=== PATIENT | female | born 1945 | race Caucasian/White ===

== ENCOUNTER → 2016-12-15 | Outpatient (CLI) | payer MEDICARE, BC ==
[2016-12-15 09:42] LABS: CHOLESTEROL 206.84 mg/dL (0-200); Direct HDL 69 mg/dL (>40); TRIGLYCERIDES 108 mg/dL (<150)
[2016-12-15 09:53] LABS: DIRECT LDL 115 mg/dL (<100)
== END ==
LOC: OD 08:14
PROVIDERS: ATTEND Internal Medicine
DX: E11.9 Type 2 diabetes mellitus without complications (principal); E78.5 Hyperlipidemia, unspecified
CPT/HCPCS: 36415; 80061; 83036

== ENCOUNTER → 2017-06-01 | Outpatient (CLI) | payer MEDICARE, OTHER ==
[2017-06-01 09:25] LABS: ABSOLUTE BASOPHILS # (AUTO) 0.1 10^3/uL (0.0-0.2); ABSOLUTE EOSINOPHILS # (AUTO) 0.2 10^3/uL (0.0-0.6); ABSOLUTE LYMPHOCYTES (AUTO) 2.3 10^3/uL (0.5-4.7); ABSOLUTE MONOCYTES (AUTO) 0.6 10^3/uL (0.1-1.4); ABSOLUTE NEUT (AUTO) 2.5 10^3/uL (1.7-8.2); BASOPHILS % (AUTO) 1.1 % (0-2); EOSINOPHILS % (AUTO) 3.2 % (0-6); HEMATOCRIT 37.5 % (36.0-47.0); HEMOGLOBIN 12.8 g/dL (12.0-15.5); HGB HCT DIFFERENCE 0.9; LYMPHOCYTES % (AUTO) 41.3 % (13-45); MEAN CORPUSCULAR HEMOGLOBIN 31.2 pg (27.0-33.4); MEAN CORPUSCULAR HGB CONC 34.2 g/dL (32.0-36.0); MEAN CORPUSCULAR VOLUME 91 fl (80-97); MONOCYTES % (AUTO) 10.7 % (3-13); RED BLOOD COUNT 4.12 10^6/uL (3.72-5.28); RED CELL DISTRIBUTION WIDTH 14.6 % (11.5-14.0); SEGMENTED NEUTROPHILS % (AUTO) 43.7 % (42-78); WHITE BLOOD COUNT 5.6 10^3/uL (4.0-10.5)
[2017-06-01 09:38] LABS: ALANINE AMINOTRANSFERASE 31 U/L (9-52); ALBUMIN 4.1 g/dL (3.5-5.0); ALKALINE PHOSPHATASE 59 U/L (38-126); ANION GAP 9 (5-19); ASPARTATE AMINO TRANSFERASE 22 U/L (14-36); BILIRUBIN,DIRECT 0.2 mg/dL (0.0-0.4); BILIRUBIN,TOTAL 0.6 mg/dL (0.2-1.3); BLOOD UREA NITROGEN 16 mg/dL (7-20); CARBON DIOXIDE 29 mmol/L (22-30); CHLORIDE 101 mmol/L (98-107); CHOLESTEROL 204.03 mg/dL (0-200); CREATININE RESULT 0.69 mg/dL (0.52-1.25); Direct HDL 69 mg/dL (>40); GLUCOSE 122 mg/dL (75-110); SODIUM 139.4 mmol/L (137-145); TRIGLYCERIDES 96 mg/dL (<150)
[2017-06-01 09:49] LABS: DIRECT LDL 115 mg/dL (<100)
[2017-06-02 11:39] LABS: CREATININE URINE 69.3 mg/dL (Not Estab.); MICROALBUMIN URINE 19.8 ug/mL (Not Estab.)
== END ==
LOC: OD 08:03
PROVIDERS: ATTEND Family Medicine Geriatric Medicine
DX: I10 Essential (primary) hypertension (principal); E11.9 Type 2 diabetes mellitus without complications; E78.5 Hyperlipidemia, unspecified; G62.9 Polyneuropathy, unspecified; Z79.899 Other long term (current) drug therapy
CPT/HCPCS: 36415; 80053; 80061; 82043; 82570; 83036; 84443; 85025

== ENCOUNTER → 2017-10-16 | Outpatient (CLI) | payer MEDICARE, OTHER ==
--- NOTE | 2017-10-16 14:22 | WOMENS IMAGING REPORT ---
EXAM DESCRIPTION: BILAT SCREENING MAMMO W/CAD COMPLETED DATE/TIME: 10/16/2017 9:54 am REASON FOR STUDY: SCREENING MAMMO Z12.31 ENCNTR SCREEN MAMMOGRAM FOR MALIGNANT NEOPLASM OF CHAVEZ COMPARISON: 2013, 2015 TECHNIQUE: Standard craniocaudal and mediolateral oblique views of each breast recorded using digita l acquisition. LIMITATIONS: None. FINDINGS: No masses, calcifications or architectural distortion. No areas of suspicion. Read with the assistance of CAD. .[facility] - R2 Cenova Version 1.3 .[facility] Imaging - R2 Cenova Version 1.3 .[facility] Imaging - R2 Cenova Version 2.4 .[facility] - R2 Cenova Version 2.4 .[facility] - R2 Sole Splitter Version 9.2 IMPRESSION: NORMAL MAMMOGRAM. BIRADS 1. BREAST DENSITY: b. There are scattered areas of fibroglandular density. BIRAD: 1 NEGATIVE RECOMMENDATION: ROUTINE SCREENING COMMENT: The patient has been notified of the results by letter per MQSA requirements. Additional no tification policies are in place for contacting patient with suspicious or incomplete findings. Quality ID #[id number]: The [employer] [place] [employer] recommends an annual screening mammogram for women aged 40 years or over. This facility utilizes a reminder system to ensure that all patients receive reminder letters, and/or direct phone calls for appointments. This includes reminders for routine scr eening mammograms, diagnostic mammograms, or other Breast Imaging Interventions when appropriate. Th is patient will be placed in the appropriate reminder system. The [place] [employer] (ACR) has developed recommendations for screening MRI of the breast s in certain patient populations, to be used in conjunction with mammography. Breast MRI surveillanc e may be appropriate for women with more than 20% lifetime risk of developing breast cancer as deter mined by genetic testing, significant family history of the disease, or history of mantle radiation f or Hodgkins Disease. ACR Practice Guidelines 2008. TECHNICAL DOCUMENTATION: FINDING NUMBER: (1) ASSESSMENT: (1) JOB ID: [id number] [employer]- All Rights Reserved
== END ==
LOC: WI 09:35
PROVIDERS: ATTEND Family Medicine Geriatric Medicine
DX: Z12.31 Encounter for screening mammogram for malignant neoplasm of breast (principal)
CPT/HCPCS: 77067; G0202

== ENCOUNTER → 2017-12-03 | Outpatient (CLI) | payer MEDICARE, OTHER ==
[2017-12-03 10:03] LABS: MAGNESIUM 1.5 mg/dL (1.6-2.3)
[2017-12-04 12:38] LABS: CREATININE URINE 62.2 mg/dL (Not Estab.); MICROALBUMIN URINE 18.8 ug/mL (Not Estab.)
== END ==
LOC: OD 08:21
PROVIDERS: ATTEND Family Medicine Geriatric Medicine
DX: E83.42 Hypomagnesemia (principal); E78.5 Hyperlipidemia, unspecified; I10 Essential (primary) hypertension; E11.40 Type 2 diabetes mellitus with diabetic neuropathy, unspecified; G57.51 Tarsal tunnel syndrome, right lower limb; R79.89 Other specified abnormal findings of blood chemistry; Z29.9 Encounter for prophylactic measures, unspecified; Z79.899 Other long term (current) drug therapy
CPT/HCPCS: 36415; 82043; 82570; 83036; 83735; 84450; 84460

== ENCOUNTER → 2018-01-05 | Outpatient (CLI) | payer MEDICARE, OTHER | LOC: OD 12:57 | PROVIDERS: ATTEND Family Medicine Geriatric Medicine | DX: E83.42 Hypomagnesemia (principal); Z79.899 Other long term (current) drug therapy | CPT/HCPCS: 36415; 83735 ==

== ENCOUNTER → 2018-04-05 | Outpatient (CLI) | payer MEDICARE, OTHER ==
--- NOTE | 2018-04-05 16:07 | RADIOLOGY REPORT (SQ) ---
EXAM DESCRIPTION: KNEE RIGHT 2 VIEWS COMPLETED DATE/TIME: 04/05/2018 3:50 pm REASON FOR STUDY: COUGH,RT KNEE JOINT PAIN; LUMBAR DEG. DISC DISEASE R05 COUGH M25.561 PAIN IN RIG HT KNEE M51.36 OTHER INTERVERTEBRAL DISC DEGENERATION, LUMBAR REGION COMPARISON: None. NUMBER OF VIEWS: Two views. TECHNIQUE: AP and lateral radiographic images acquired of the right knee. LIMITATIONS: None. FINDINGS: MINERALIZATION: Normal. BONES: No acute fracture or dislocation. JOINT: No joint effusion. There is narrowing of the patellofemoral joint. Marginal osteophytes are seen in the medial and lateral joint spaces to a mild degree. Meniscal calcifications are present. SOFT TISSUES: No soft tissue swelling. No radio-opaque foreign body. OTHER: No other significant finding. IMPRESSION: Mild degenerative joint disease with no acute abnormality. TECHNICAL DOCUMENTATION: JOB ID: [id number] [employer]- All Rights Reserved Reading location - IP/workstation name: [email or web address]
--- NOTE | 2018-04-05 16:11 | RADIOLOGY REPORT (SQ) ---
EXAM DESCRIPTION: LUMBAR SPINE W/FLEX/EXT COMPLETED DATE/TIME: 04/05/2018 3:51 pm REASON FOR STUDY: COUGH,RT KNEE JOINT PAIN; LUMBAR DEG. DISC DISEASE R05 COUGH M25.561 PAIN IN RIG HT KNEE M51.36 OTHER INTERVERTEBRAL DISC DEGENERATION, LUMBAR REGION COMPARISON: None. NUMBER OF VIEWS: 7 views. TECHNIQUE: AP oblique and coned-down lateral views were obtained. Lateral views were obtained in ne utral, flexion, and extension. LIMITATIONS: None. FINDINGS: MINERALIZATION: Normal. SEGMENTATION: Normal. No transitional anatomy. ALIGNMENT: Mild scoliosis. Grade 1 anterolisthesis of L2 on L3. FLEXION/EXTENSION: No instability. VERTEBRAE: Maintained height. No fracture or worrisome bone lesion. DISCS: All the lumbar disc spaces are narrowed. Marginal osteophytes are present at multiple levels. POSTERIOR ELEMENTS: Hypertrophic facet changes are present in the mid and lower lumbar spine. HARDWARE: None in the spine. OTHER: No other significant finding. IMPRESSION: Mild scoliosis. Anterolisthesis of L2 on L3. Multilevel degenerative disc disease, spo ndylosis, and facet arthropathy. No instability on flexion/ extension. TECHNICAL DOCUMENTATION: JOB ID: [id number] [employer]- All Rights Reserved Reading location - IP/workstation name: [email or web address]
--- NOTE | 2018-04-05 16:13 | RADIOLOGY REPORT (SQ) ---
EXAM DESCRIPTION: CHEST PA/LATERAL COMPLETED DATE/TIME: 04/05/2018 3:51 pm REASON FOR STUDY: COUGH,RT KNEE JOINT PAIN; LUMBAR DEG. DISC DISEASE COMPARISON: 04/02/2016 EXAM PARAMETERS: NUMBER OF VIEWS: two views TECHNIQUE: Digital Frontal and Lateral radiographic views of the chest acquired. RADIATION DOSE: NA LIMITATIONS: none FINDINGS: LUNGS AND PLEURA: No opacities, masses or pneumothorax. No pleural effusion. MEDIASTINUM AND HILAR STRUCTURES: No masses or contour abnormalities. HEART AND VASCULAR STRUCTURES: Heart normal size. No evidence for failure. BONES: No acute findings. HARDWARE: None in the chest. OTHER: No other significant finding. IMPRESSION: NO SIGNIFICANT RADIOGRAPHIC FINDING IN THE CHEST. TECHNICAL DOCUMENTATION: JOB ID: [id number] [employer]- All Rights Reserved Reading location - IP/workstation name: [email or web address]
== END ==
LOC: OD 15:04
PROVIDERS: ATTEND Pain Medicine Pain Medicine
DX: M25.561 Pain in right knee (principal); M51.36 Other intervertebral disc degeneration, lumbar region; R05 Cough; M17.11 Unilateral primary osteoarthritis, right knee
CPT/HCPCS: 71046; 72114

== ENCOUNTER → 2018-06-15 | Outpatient (CLI) | payer MEDICARE, OTHER ==
[2018-06-15 10:27] LABS: ALANINE AMINOTRANSFERASE 39 U/L (9-52); ANION GAP 12 (5-19); BLOOD UREA NITROGEN 10 mg/dL (7-20); CALCIUM 9.7 mg/dL (8.4-10.2); CARBON DIOXIDE 28 mmol/L (22-30); CHLORIDE 94 mmol/L (98-107); CHOLESTEROL 105.86 mg/dL (0-200); GLUCOSE 120 mg/dL (75-110); POTASSIUM 5.1 mmol/L (3.6-5.0); SODIUM 133.7 mmol/L (137-145); TRIGLYCERIDES 76 mg/dL (<150)
[2018-06-15 11:19] LABS: DIRECT LDL < 30 mg/dL (<100)
[2018-06-16 13:38] LABS: CREATININE URINE 22.6 mg/dL (Not Estab.); MICROALBUMIN URINE 17.9 ug/mL (Not Estab.)
== END ==
LOC: OD 08:30
PROVIDERS: ATTEND Family Medicine Geriatric Medicine
DX: E11.40 Type 2 diabetes mellitus with diabetic neuropathy, unspecified (principal); I10 Essential (primary) hypertension; E78.5 Hyperlipidemia, unspecified; E53.8 Deficiency of other specified B group vitamins
CPT/HCPCS: 36415; 80048; 80061; 82043; 82570; 82607; 83036; 84460

== ENCOUNTER 2018-07-01 07:45 | Emergency (ER) | payer MEDICARE, OTHER ==
--- NOTE | 2018-07-01 08:23 | RADIOLOGY REPORT (SQ) ---
EXAM DESCRIPTION: SHOULDER RIGHT 2 OR MORE VIEWS COMPLETED DATE/TIME: 07/01/2018 7:58 am REASON FOR STUDY: bed 15 s/p fall with tenderness COMPARISON: None. NUMBER OF VIEWS: Two views TECHNIQUE: Internal rotation and Y view images acquired of the right shoulder. LIMITATIONS: None. FINDINGS: MINERALIZATION: Bony structures are osteopenic BONES: Comminuted fracture is identified at the level of the greater tuberosity. No other evidence f or fracture is seen JOINTS: Degenerative changes are identified at the level of the AC joint VISUALIZED LUNGS AND RIBS: No pneumothorax. No rib fracture. SOFT TISSUES: No radiopaque foreign body. OTHER: No other significant finding. IMPRESSION: Fracture of the proximal humerus as noted above. TECHNICAL DOCUMENTATION: JOB ID: [id number] [employer]- All Rights Reserved Reading location - IP/workstation name: [email or web address]
[2018-07-01] MEDS ORDERED: ACETAMINOPHEN 325 MG TABLET PO ONE ×2 (08:24)
--- NOTE | 2018-07-01 08:53 | ER Document Report ---
ED General - General Chief Complaint: Fall Stated Complaint: FALL/ARM INJURY Time Seen by Provider: 07/01/18 08:13 TRAVEL OUTSIDE OF THE [place] IN LAST 30 DAYS: No - HPI Notes: Patient is a 72-year-old female with a history of hypertension, diabetes, chronic low back pain who presents to the ED complaining of right shoulder pain status post fall prior to arrival. Patient states that she was using her Rollator to get to the bathroom because she had to urinate when she did not make it in time started urinating on the floor and slipped on the urine causing her to fall. Patient states that she fell forward and landed primarily on her shoulder on the wood floor, but does believe she hit her head off the floor as well. Patient states that she has not had any loss of consciousness, nausea/ vomiting. She takes a baby aspirin daily, but no other blood thinners. Denies any headache, fever, neck pain, changes in vision/speech/mentation/hearing, URI , sore throat, chest pain, palpitations, syncope, cough, shortness of breath, wheeze, dyspnea, abdominal pain, nausea/vomiting/diarrhea, urinary retention, dysuria, hematuria, loss of control of bowel or bladder, numbness/tingling, saddle anesthesia, muscle paralysis, or rash. - Related Data Allergies/Adverse Reactions: cephalexin monohydrate [From Keflex] Allergy (Severe, Verified 05/29/16 08:47) C-Diff clarithromycin [From Biaxin] Allergy (Severe, Verified 05/29/16 08:47) Abdominal pain cyclobenzaprine HCl [From Flexeril] Allergy (Severe, Verified 05/29/16 08:47) Legs jerk meperidine HCl [From Demerol] Allergy (Severe, Verified 05/29/16 08:47) Blood pressure drops, decreased respirations metoclopramide HCl [From Reglan] Allergy (Severe, Verified 05/29/16 08:47) Legs jerk promethazine HCl [From Phenergan] Allergy (Severe, Verified 05/29/16 08:47) Legs jerk pseudoephedrine HCl [From Sudafed] Allergy (Severe, Verified 05/29/16 08:47) Palpitations scopolamine Allergy (Severe, Verified 05/29/16 08:47) Legs jerk Sulfa eye drops Allergy (Severe, Uncoded 05/29/16 08:47) swelling, itching,watering of the eyes Past Medical History - Social History Smoking Status: Never Smoker Family History: Reviewed & Not Pertinent Patient has suicidal ideation: No Patient has homicidal ideation: No - Past Medical History Cardiac Medical History: Reports: Hx Hypertension Denies: Hx Coronary Artery Disease, Hx Heart Attack Pulmonary Medical History: Reports: Hx Bronchitis - Last time 2 yrs ago Denies: Hx Asthma, Hx COPD, Hx Pneumonia Neurological Medical History: Denies: Hx Cerebrovascular Accident, Hx Seizures Renal/ Medical History: Denies: Hx Peritoneal Dialysis GI Medical History: Reports: Hx Hiatal Hernia. Denies: Hx Hepatitis, Hx Ulcer Musculoskeletal Medical History: Reports Hx Arthritis - All joints Infectious Medical History: Denies: Hx Hepatitis Past Surgical History: Reports: Hx Hysterectomy. Denies: Hx Mastectomy, Hx Open Heart Surgery, Hx Pacemaker - Immunizations Hx Diphtheria, Pertussis, Tetanus Vaccination: Yes Hx Pneumococcal Vaccination: 11/04/10 Review of Systems - Review of Systems -: Yes All other systems reviewed and negative Physical Exam - Notes Notes: PHYSICAL EXAMINATION: GENERAL: Well-appearing, well-nourished and in no acute distress. A&Ox4. Answers questions appropriately. HEAD: Atraumatic, normocephalic. Non-tender. No mcfadden sign EYES: Pupils equal round and reactive to light, extraocular movements intact, sclera anicteric, conjunctiva are normal. No raccoon eyes/entrapment. No nystagmus. ENT: EAC clear b/l. TM's intact b/l without erythema, fluid, or perforation. Nares patent and without discharge. oropharynx clear without exudates. No tonsilar hypertrophy or erythema. Moist mucous membranes. No sinus tenderness. No hemotympanum/CSF discharge. NECK: Normal range of motion, supple without lymphadenopathy. No rigidity. No obvious midline tenderness, but cannot r/o by nexus. Chest: No flail chest. equal rise/fall. Non-tender LUNGS: Breath sounds clear to auscultation bilaterally and equal. No wheezes rales or rhonchi. HEART: Regular rate and rhythm without murmurs, rubs, gallops. ABDOMEN: Soft, nontender, nondistended abdomen. No guarding, no rebound. Normal bowel sounds present. No ecchymosis Musculoskeletal: Rt shoulder/UE: In a make-shift sling by EMS. + tenderness proximal humerus and lateral forearm. N/V intact distal. Ext's otherwise b/l: FROM to passive/active. Strength 5+/5. No deficits noted. No bony tenderness of extremities. N/V intact. Back: FROM to passive/active. Strength 5+/5. No vertebral point tenderness, stepoffs, or deformities. Extremities: No cyanosis, clubbing, or edema b/l. Peripheral pulses 2+. Capillary refill less than 2 seconds. NEUROLOGICAL: NIH grossly 0--with respect to rt arm in sling. GCS 15. Cranial nerves grossly intact. Normal speech, normal gait. Normal sensory, motor exams. --aside from use of the rt arm. PSYCH: Normal mood, normal affect. SKIN: Warm, Dry, normal turgor, no rashes or lesions noted. Course - Re-evaluation Re-evalutation: 07/01/18 10:19 Patient is an afebrile, well-hydrated, 72-year-old female who presents to the ED with a right proximal humerus fracture status post fall. Vitals are acceptable without significant tachycardia, tachypnea, or hypoxia. PE is otherwise unremarkable for any focal neurological deficits, neurovascular compromise. See shoulder x-ray. X-ray of the forearm, CT scan of the head/ cervical spine were unremarkable for any acute pathology. Patient is tolerating p.o. without difficulties and is nontoxic-appearing. Sling was placed. No other labs or imaging warranted at this time based on H&P. Low suspicion for any acute glaucoma, temporal arteritis, meningitis, intracranial hemorrhage, ischemic stroke, or fracture at this time. Patient is aware that this condition can change from initial presentation and that she needs to monitor symptoms closely for any acute changes. Patient was given Tylenol as well as morphine p.o. I will be sending her home with a prescription for Apache. She is to call orthopedics today to schedule an appointment for further evaluation and management. Return to the ED with any worsening/concerning symptoms otherwise as reviewed in discharge. Patient is in agreement. Discharge - Discharge Clinical Impression: Proximal humerus fracture Qualifiers: Encounter type: initial encounter Fracture type: closed Fracture morphology: unspecified fracture morphology Laterality: right Qualified Code(s): S42.201A - Unspecified fracture of upper end of right humerus, initial encounter for closed fracture Condition: Stable Disposition: HOME, SELF-CARE Instructions: Fracture Proximal Humerus Additional Instructions: Rest, Ice Use sling as directed Tylenol/ibuprofen as needed F/u with your PCP in 3-5 days for a recheck Call orthopedics today to schedule an appointment for further evaluation and management Return to the ED with any worsening symptoms and/or development of fever, headache, chest pain, palpitations, syncope, shortness of breath, trouble breathing, abdominal pain, n/v/d, muscle weakness/paralysis, numbness/tingling, swelling, redness, or other worsening symptoms that are concerning to you. Prescriptions: Hydrocodone/Acetaminophen [Apache 5-325 mg Tablet] 1 tab PO TID PRN #12 tablet PRN Reason: Forms: Elevated Blood Pressure Referrals: PARIS LAZO MD [Primary Care Provider] - Follow up in 3-5 days [facility] [Provider Group] - 07/02/18
[2018-07-01] MEDS ORDERED: MORPHINE SULFATE IR 15 MG TABLET PO ONE (09:07)
--- NOTE | 2018-07-01 09:22 | RADIOLOGY REPORT (SQ) ---
EXAM DESCRIPTION: CT HEAD WITHOUT COMPLETED DATE/TIME: 07/01/2018 9:00 am REASON FOR STUDY: fall, injury COMPARISON: September 2015 TECHNIQUE: Axial images acquired through the brain without intravenous contrast. Images reviewed wi th bone, brain and subdural windows. Additional sagittal and coronal reconstructions were generated. Images stored on PACS. All CT scanners at this facility use dose modulation, iterative reconstruction, and/or weight based d osing when appropriate to reduce radiation dose to as low as reasonably achievable (ALARA). [facility]: Dose Right [facility]: CareDose [facility]: Dose Right [facility]: Teradose 4D [facility]: Smart [employer] RADIATION DOSE: CT Rad equipment meets quality standard of care and radiation dose reduction techniq ues were employed. CTDIvol: 53.2 mGy. DLP: 1044 mGy-cm. mGy. LIMITATIONS: None. FINDINGS: VENTRICLES: Prominent. CEREBRUM: No masses. No hemorrhage. No midline shift. Areas of low density in the white matter mos t likely due to chronic micro-vascular ischemic change. No evidence for acute infarction. CEREBELLUM: No masses. No hemorrhage. No alteration of density. No evidence for acute infarction. EXTRAAXIAL SPACES: Mild age-related involutional change. No fluid collections. No masses. ORBITS AND GLOBE: No intra- or extraconal masses. Normal contour of globe without masses. CALVARIUM: No fracture. PARANASAL SINUSES: No fluid or mucosal thickening. SOFT TISSUES: No mass or hematoma. OTHER: No other significant finding. IMPRESSION: MILD CHRONIC CHANGES OF ATROPHY AND MICROVASCULAR ISCHEMIA. NO ACUTE PROCESS. EVIDENCE OF ACUTE STROKE: NO. TECHNICAL DOCUMENTATION: JOB ID: [id number] Quality ID # [id number]: Final reports with documentation of one or more dose reduction techniques (e.g., Au tomated exposure control, adjustment of the mA and/or kV according to patient size, use of iterative reconstruction technique) 2010 [employer]- All Rights Reserved Reading location - IP/workstation name: [email or web address]
--- NOTE | 2018-07-01 09:26 | RADIOLOGY REPORT (SQ) ---
EXAM DESCRIPTION: CT CERVICAL SPINE WITHOUT COMPLETED DATE/TIME: 07/01/2018 9:00 am REASON FOR STUDY: fall, injury COMPARISON: None. TECHNIQUE: Axial images acquired through the cervical spine without intravenous contrast. Images re viewed with lung, soft tissue and bone windows. Reconstructed coronal and sagittal MPR images review ed. Images stored on PACS. All CT scanners at this facility use dose modulation, iterative reconstruction, and/or weight based d osing when appropriate to reduce radiation dose to as low as reasonably achievable (ALARA). [facility]: Dose Right [facility]: CareDose [facility]: Dose Right [facility]: Teradose 4D [facility]: Smart [employer] RADIATION DOSE: CT Rad equipment meets quality standard of care and radiation dose reduction techniq ues were employed. CTDIvol: 18.8 mGy. DLP: 360 mGy-cm. mGy. LIMITATIONS: None. FINDINGS: ALIGNMENT: Anatomic. MINERALIZATION: Normal. VERTEBRAL BODIES: No fractures or dislocation. DISCS: Postsurgical changes are identified with disc spacers at the C4-C5, C5-C 6, and C6-C7 disc spa ce levels. FACETS, LATERAL MASSES, POSTERIOR ELEMENTS: Facet arthropathy. No fractures. No dislocation. No ac levelock findings. HARDWARE: Anterior orthopedic plate transfixed by orthopedic screws is identified extending from the C4 to the C7 level. VISUALIZED RIBS: No fractures. LUNG APICES AND SOFT TISSUES: No significant or acute findings. OTHER: No other significant finding. IMPRESSION: No acute fracture. Postsurgical changes as noted above. Other findings as noted above TECHNICAL DOCUMENTATION: JOB ID: [id number] Quality ID # [id number]: Final reports with documentation of one or more dose reduction techniques (e.g., Au tomated exposure control, adjustment of the mA and/or kV according to patient size, use of iterative reconstruction technique) 2010 [employer]- All Rights Reserved Reading location - IP/workstation name: [email or web address]
--- NOTE | 2018-07-01 09:30 | RADIOLOGY REPORT (SQ) ---
EXAM DESCRIPTION: FOREARM RIGHT COMPLETED DATE/TIME: 07/01/2018 9:13 am REASON FOR STUDY: pain s/p fall COMPARISON: None. NUMBER OF VIEWS: Two views. TECHNIQUE: Two radiographic images acquired of the right forearm, including elbow and wrist in at le ast one projection. LIMITATIONS: None. FINDINGS: MINERALIZATION: Normal. BONES: No acute fracture. No worrisome bone lesions. SOFT TISSUES: No obvious swelling or foreign body. OTHER: No other significant finding. IMPRESSION: NEGATIVE STUDY OF THE RIGHT FOREARM. NO RADIOGRAPHIC EVIDENCE OF ACUTE INJURY. TECHNICAL DOCUMENTATION: JOB ID: [id number] [employer] All Rights Reserved Reading location - IP/workstation name: [email or web address]
[2018-07-01 10:52] VITALS: BP 121/70
== END 2018-07-01 10:52 | disposition home or self-care (01) ==
LOC: ER 07:45
DX: M54.5 Low back pain (principal); M25.511 Pain in right shoulder; G89.29 Other chronic pain; I10 Essential (primary) hypertension; E11.9 Type 2 diabetes mellitus without complications; W01.0XXA Fall on same level from slipping, tripping and stumbling without subsequent striking against object, initial encounter; Y92.002 Bathroom of unspecified non-institutional (private) residence as the place of occurrence of the external cause
CPT/HCPCS: 99284; 73090; 73030; 70450; 72125; L3650; A9270 ×2

== ENCOUNTER → 2018-10-18 | Outpatient (CLI) | payer MEDICARE, OTHER ==
--- NOTE | 2018-10-18 15:26 | WOMENS IMAGING REPORT ---
EXAM DESCRIPTION: BILAT SCREENING MAMMO W/CAD COMPLETED DATE/TIME: 10/18/2018 9:01 am REASON FOR STUDY: SCREENING [id number] ENCNTR SCREEN MAMMOGRAM FOR MALIGNANT NEOPLASM OF CHAVEZ COMPARISON: 2013 to 2016 TECHNIQUE: Standard craniocaudal and mediolateral oblique views of each breast recorded using [employer] l acquisition. LIMITATIONS: None. FINDINGS: RIGHT BREAST MASSES: No suspicious masses. CALCIFICATIONS: No new or suspicious calcifications. ARCHITECTURAL DISTORTION: None. DEVELOPING DENSITY: Developing density in the lateral breast on the CC view only 8 cm from the nipple ASYMMETRY: None noted. OTHER: No other significant findings. LEFT BREAST MASSES: No suspicious masses. CALCIFICATIONS: No new or suspicious calcifications. ARCHITECTURAL DISTORTION: None. DEVELOPING DENSITY: None. ASYMMETRY: None noted. OTHER: No other significant findings. Read with the assistance of CAD. .[facility] - R2 Cenova Version 1.3 .[facility] Imaging - R2 Cenova Version 1.3 .[facility] - R2 Cenova Version 2.4 .[facility] - R2 Cenova Version 2.4 .[facility] - R2 Surgeon/President Version 9.2 IMPRESSION: Developing density in the right breast BREAST DENSITY: b. There are scattered areas of fibroglandular density. BIRAD: 0 Incomplete: Needs Additional Imaging Evaluation and/or prior Mammograms for Comparison. RECOMMENDATION: RECOMMENDED FOLLOW-UP: Spot compression with ultrasound if indicated. The patient will be contacted for additional imaging. COMMENT: The patient has been notified of the results by letter per SA requirements. Additional no tification policies are in place for contacting patient with suspicious or incomplete findings. Quality ID #225: The [place] [employer] recommends an annual screening mammogram for women aged 40 years or over. This facility utilizes a reminder system to ensure that all patients receive reminder letters, and/or direct phone calls for appointments. This includes reminders for routine scr eening mammograms, diagnostic mammograms, or other Breast Imaging Interventions when appropriate. Th is patient will be placed in the appropriate reminder system. The [place] [employer] (ACR) has developed recommendations for screening MRI of the breast s in certain patient populations, to be used in conjunction with mammography. Breast MRI surveillanc e may be appropriate for women with more than 20% lifetime risk of developing breast cancer as deter mined by genetic testing, significant family history of the disease, or history of mantle radiation f or Hodgkins Disease. ACR Practice Guidelines 2008. TECHNICAL DOCUMENTATION: FINDING NUMBER: (1) ASSESSMENT: (1) JOB ID: [id number] [employer]- All Rights Reserved Reading location - IP/workstation name: [email or web address]
== END ==
LOC: WI 08:11
PROVIDERS: ATTEND Family Medicine Geriatric Medicine
DX: Z12.31 Encounter for screening mammogram for malignant neoplasm of breast (principal); R92.2 Inconclusive mammogram
CPT/HCPCS: 77067

== ENCOUNTER → 2018-10-27 | Outpatient (CLI) | payer MEDICARE, OTHER ==
--- NOTE | 2018-10-27 12:42 | WOMENS IMAGING REPORT ---
EXAM DESCRIPTION: RIGHT DIAGNOSTIC MAMMO W/CAD COMPLETED DATE/TIME: 10/27/2018 10:12 am REASON FOR STUDY: R92.2 INCONCLUSIVE MAMMOGRAM R92.2 INCONCLUSIVE MAMMOGRAM COMPARISON: Multiple since 2013 TECHNIQUE: Cone compression craniocaudal and mediolateral oblique images of the breast recorded with digital acquisition. Right breast 90 mediolateral view was also obtained LIMITATIONS: None. FINDINGS: BREAST: Right MASSES: No suspicious masses. CALCIFICATIONS: No new or suspicious calcifications. ARCHITECTURAL DISTORTION: None. DEVELOPING DENSITY: None. ASYMMETRY: None noted. OTHER: No other significant findings. Read with the assistance of CAD. .[facility] - R2 Cenova Version 1.3 .[facility] - R2 Cenova Version 1.3 .[facility] Imaging - R2 Cenova Version 2.4 .[facility] - R2 Cenova Version 2.4 .[facility] - R2 Human Relations Teacher Version 9.2 IMPRESSION: No mammographic evidence for malignancy right breast BREAST DENSITY: b. There are scattered areas of fibroglandular density. BIRAD: 1 Negative. RECOMMENDATION: RECOMMENDED FOLLOW UP: Please continue yearly bilateral screening mammography/ tomos ynthesis in October 2019 SPECIFIC INTERVENTION/IMAGING/CONSULTATION RECOMMENDED:No additional intervention/ imaging/consultati on needed at this time. COMMUNICATION:Patient notified at the time of service. Patient also notified by letter COMMENT: The patient has been notified of the results by letter per SA requirements. Additional no tification policies are in place for contacting patient with suspicious or incomplete findings. Quality ID #[id number]: The [employer] recommends an annual screening mammogram for women aged 40 years or over. This facility utilizes a reminder system to ensure that all patients receive reminder letters, and/or direct phone calls for appointments. This includes reminders for routine scr eening mammograms, diagnostic mammograms, or other Breast Imaging Interventions when appropriate. Th is patient will be placed in the appropriate reminder system. The [employer] (ACR) has developed recommendations for screening MRI of the breast s in certain patient populations, to be used in conjunction with mammography. Breast MRI surveillanc e may be appropriate for women with more than 20% lifetime risk of developing breast cancer as deter mined by genetic testing, significant family history of the disease, or history of mantle radiation f or Hodgkins Disease. ACR Practice Guidelines 2008. TECHNICAL DOCUMENTATION: FINDING NUMBER: (1) ASSESSMENT: (1) JOB ID: [id number] [employer]- All Rights Reserved Reading location - IP/workstation name: [email or web address]
== END ==
LOC: WI 09:46
PROVIDERS: ATTEND Family Medicine Geriatric Medicine
DX: R92.2 Inconclusive mammogram (principal)

== ENCOUNTER → 2018-12-15 | Outpatient (CLI) | payer MEDICARE, OTHER ==
[2018-12-15 10:07] LABS: ABSOLUTE BASOPHILS # (AUTO) 0.1 10^3/uL (0.0-0.2); ABSOLUTE EOSINOPHILS # (AUTO) 0.1 10^3/uL (0.0-0.6); ABSOLUTE LYMPHOCYTES (AUTO) 1.7 10^3/uL (0.5-4.7); ABSOLUTE MONOCYTES (AUTO) 0.4 10^3/uL (0.1-1.4); ABSOLUTE NEUT (AUTO) 2.2 10^3/uL (1.7-8.2); BASOPHILS % (AUTO) 1.7 % (0-2); EOSINOPHILS % (AUTO) 3.1 % (0-6); HEMATOCRIT 38.4 % (36.0-47.0); HEMOGLOBIN 13.1 g/dL (12.0-15.5); LYMPHOCYTES % (AUTO) 38.3 % (13-45); MEAN CORPUSCULAR HEMOGLOBIN 30.2 pg (27.0-33.4); MEAN CORPUSCULAR VOLUME 89 fl (80-97); MONOCYTES % (AUTO) 8.1 % (3-13); PLATELET COUNT 336 10^3/uL (150-450); RED BLOOD COUNT 4.33 10^6/uL (3.72-5.28); RED CELL DISTRIBUTION WIDTH 14.5 % (11.5-14.0); SEGMENTED NEUTROPHILS % (AUTO) 48.8 % (42-78); TOTAL CELLS COUNTED % (AUTO) 100 %; WHITE BLOOD COUNT 4.5 10^3/uL (4.0-10.5)
[2018-12-15 10:21] LABS: ALANINE AMINOTRANSFERASE 22 U/L (9-52); ANION GAP 8 (5-19); BLOOD UREA NITROGEN 12 mg/dL (7-20); CALCIUM 10.3 mg/dL (8.4-10.2); CARBON DIOXIDE 32 mmol/L (22-30); CHLORIDE 100 mmol/L (98-107); GLUCOSE 132 mg/dL (75-110); POTASSIUM 4.6 mmol/L (3.6-5.0); SODIUM 140.3 mmol/L (137-145); TRIGLYCERIDES 62 mg/dL (<150)
[2018-12-15 10:31] LABS: DIRECT LDL 57 mg/dL (<100)
[2018-12-15 10:51] LABS: APPEARANCE,URINE CLEAR; BILIRUBIN,URINE NEGATIVE (NEGATIVE); COLOR,URINE YELLOW; GLUCOSE, URINE NEGATIVE (NEGATIVE); KETONES,URINE NEGATIVE (NEGATIVE); LEUKOCYTE ESTERASE,URINE TRACE (NEGATIVE); NITRITE,URINE NEGATIVE (NEGATIVE); PROTEIN,URINE NEGATIVE (NEGATIVE); URINE SPECIFIC GRAVITY 1.009; UROBILINOGEN,URINE NEGATIVE mg/dL (<2.0)
[2018-12-16 10:38] LABS: CREATININE URINE 42.5 mg/dL (Not Estab.); MICROALBUMIN URINE 54.7 ug/mL (Not Estab.)
== END ==
LOC: OD 09:15
PROVIDERS: ATTEND Family Medicine Geriatric Medicine
DX: R30.0 Dysuria (principal); R35.0 Frequency of micturition; R82.90 Unspecified abnormal findings in urine; E11.9 Type 2 diabetes mellitus without complications
CPT/HCPCS: 36415; 80048; 80061; 81001; 82043; 82570; 83036; 84460; 85025; 87086

== ENCOUNTER → 2019-01-26 | Outpatient (CLI) | payer MEDICARE, OTHER ==
[2019-01-26 09:44] LABS: ABSOLUTE EOSINOPHILS # (AUTO) 0.1 10^3/uL (0.0-0.6); ABSOLUTE MONOCYTES (AUTO) 0.5 10^3/uL (0.1-1.4); ABSOLUTE NEUT (AUTO) 1.7 10^3/uL (1.7-8.2); BASOPHILS % (AUTO) 0.8 % (0-2); HEMATOCRIT 38.8 % (36.0-47.0); HEMOGLOBIN 13.3 g/dL (12.0-15.5); LYMPHOCYTES % (AUTO) 46.5 % (13-45); MEAN CORPUSCULAR HEMOGLOBIN 30.3 pg (27.0-33.4); MEAN CORPUSCULAR HGB CONC 34.2 g/dL (32.0-36.0); MEAN CORPUSCULAR VOLUME 89 fl (80-97); MONOCYTES % (AUTO) 10.7 % (3-13); PLATELET COUNT 346 10^3/uL (150-450); RED BLOOD COUNT 4.38 10^6/uL (3.72-5.28); RED CELL DISTRIBUTION WIDTH 14.3 % (11.5-14.0); TOTAL CELLS COUNTED % (AUTO) 100 %; WHITE BLOOD COUNT 4.4 10^3/uL (4.0-10.5)
[2019-01-26 09:56] LABS: APPEARANCE,URINE CLEAR; BILIRUBIN,URINE NEGATIVE (NEGATIVE); COLOR,URINE YELLOW; GLUCOSE, URINE NEGATIVE (NEGATIVE); KETONES,URINE NEGATIVE (NEGATIVE); LEUKOCYTE ESTERASE,URINE NEGATIVE (NEGATIVE); NITRITE,URINE NEGATIVE (NEGATIVE); PROTEIN,URINE NEGATIVE (NEGATIVE); UROBILINOGEN,URINE NEGATIVE mg/dL (<2.0)
[2019-01-26 10:10] LABS: UR PRO/CREAT RATIO RESULT 0.2 mg/mg (0.0-0.2); URINE CREATININE 61.3 mg/dL (15-278); URINE PROTEIN 9.5 mg/dL (<12)
[2019-01-26 10:14] LABS: ALANINE AMINOTRANSFERASE 31 U/L (9-52); ALBUMIN 4.1 g/dL (3.5-5.0); ALKALINE PHOSPHATASE 51 U/L (38-126); ANION GAP 12 (5-19); ASPARTATE AMINO TRANSFERASE 25 U/L (14-36); BILIRUBIN,DIRECT 0.3 mg/dL (0.0-0.4); BILIRUBIN,TOTAL 0.6 mg/dL (0.2-1.3); BLOOD UREA NITROGEN 13 mg/dL (7-20); CALCIUM 10.4 mg/dL (8.4-10.2); CARBON DIOXIDE 27 mmol/L (22-30); CHLORIDE 93 mmol/L (98-107); GLUCOSE 128 mg/dL (75-110); POTASSIUM 4.9 mmol/L (3.6-5.0); SODIUM 132.2 mmol/L (137-145)
== END ==
LOC: OD 08:46
PROVIDERS: ATTEND Internal Medicine Nephrology
DX: R80.9 Proteinuria, unspecified (principal); E11.9 Type 2 diabetes mellitus without complications; I10 Essential (primary) hypertension
CPT/HCPCS: 36415; 80053; 81001; 82570; 84156; 85025

== ENCOUNTER → 2019-03-17 | Outpatient (CLI) | payer MEDICARE, OTHER ==
[2019-03-17 10:14] LABS: ANION GAP 11 (5-19); BLOOD UREA NITROGEN 14 mg/dL (7-20); CALCIUM 10.3 mg/dL (8.4-10.2); CARBON DIOXIDE 28 mmol/L (22-30); CHLORIDE 98 mmol/L (98-107); GLUCOSE 128 mg/dL (75-110); POTASSIUM 4.5 mmol/L (3.6-5.0)
== END ==
LOC: OD 09:04
PROVIDERS: ATTEND Family Medicine Geriatric Medicine
DX: E11.40 Type 2 diabetes mellitus with diabetic neuropathy, unspecified (principal); I10 Essential (primary) hypertension; E83.52 Hypercalcemia; Z79.899 Other long term (current) drug therapy
CPT/HCPCS: 36415; 80048; 83036

== ENCOUNTER 2019-06-05 20:06 | Inpatient (IN) | payer MEDICARE, OTHER ==
--- NOTE | 2019-06-05 20:16 | ER Document Report ---
ED Cardiac - General Stated Complaint: DIZZINESS Time Seen by Provider: 06/05/19 20:16 Primary Care Provider: PARIS LAZO MD [Primary Care Provider] - Follow up as needed Notes: This is a 73-year-old female patient emergency department chief complaint of syncope and dizziness. Patient states that she always feels a little stressed out on Sundays but today it was particularly bad. Later on this evening she felt extremely weak. She was with some friends and all of a sudden she felt like she was going to pass out. Crumpled to the floor. Did not hit her head. Did not land hardly. Friend witnessed the fall. Stated that she was garbling her speech and seemed to be weak on the right side and confused. EMS was called. They arrived and patient was arousable. Making sense. No appreciable weakness. Denied any chest pain but does state that she felt dizzy and weak all over. When thought that her right side was acting weird. Patient states that she has had multiple problems since having back surgery. Was left with some s pasms. Having lots of spasms at this time as well. She did state that she drank some coffee with creamer today and that has made things a little bit worse. TRAVEL OUTSIDE OF THE [place] IN LAST 30 DAYS: No - HPI Use of: Caffeine Quality of pain: None Associated symptoms: Dizziness, Lightheaded, Nausea/vomiting, Weakness - Related Data Allergies/Adverse Reactions: cephalexin monohydrate [From Keflex] Allergy (Severe, Verified 05/29/16 08:47) C-Diff clarithromycin [From Biaxin] Allergy (Severe, Verified 05/29/16 08:47) Abdominal pain cyclobenzaprine HCl [From Flexeril] Allergy (Severe, Verified 05/29/16 08:47) Legs jerk meperidine HCl [From Demerol] Allergy (Severe, Verified 05/29/16 08:47) Blood pressure drops, decreased respirations metoclopramide HCl [From Reglan] Allergy (Severe, Verified 05/29/16 08:47) Legs jerk promethazine HCl [From Phenergan] Allergy (Severe, Verified 05/29/16 08:47) Legs jerk pseudoephedrine HCl [From Sudafed] Allergy (Severe, Verified 05/29/16 08:47) Palpitations scopolamine Allergy (Severe, Verified 05/29/16 08:47) Legs jerk Sulfa eye drops Allergy (Severe, Uncoded 05/29/16 08:47) swelling, itching,watering of the eyes Past Medical History - General Information source: Patient - Social History Smoking Status: Never Smoker Frequency of alcohol use: None Drug Abuse: None Lives with: Alone Family History: Reviewed & Not Pertinent - Past Medical History Cardiac Medical History: Reports: Hx Hypertension Denies: Hx Coronary Artery Disease, Hx Heart Attack Pulmonary Medical History: Reports: Hx Bronchitis - Last time 2 yrs ago Denies: Hx Asthma, Hx COPD, Hx Pneumonia Neurological Medical History: Denies: Hx Cerebrovascular Accident, Hx Seizures Renal/ Medical History: Denies: Hx Peritoneal Dialysis GI Medical History: Reports: Hx Hiatal Hernia. Denies: Hx Hepatitis, Hx Ulcer Musculoskeletal Medical History: Reports Hx Arthritis - All joints Infectious Medical History: Denies: Hx Hepatitis Past Surgical History: Reports: Hx Hysterectomy. Denies: Hx Mastectomy, Hx Open Heart Surgery, Hx Pacemaker - Immunizations Hx Diphtheria, Pertussis, Tetanus Vaccination: Yes Hx Pneumococcal Vaccination: 11/04/10 Review of Systems - Review of Systems Notes: Constitutional: denies: Chills, Diaphoresis, Fever, Malaise, +Weakness EENT: denies: Eye discharge, Blurred vision, Tearing, Double vision, Nose congestion, Nose discharge, Throat swelling, Mouth pain Cardiovascular: + syncope and dizziness.+ Palpitations Respiratory: denies: Cough, Hurts to breathe, Wheezing, Shortness of breath Gastrointestinal: denies: Abdominal pain, Diarrhea, Nausea, Vomiting, Black stools, bright red blood in stool Genitourinary: denies: Burning, Dysuria, Discharge, Frequency, Flank pain, Hematuria Musculoskeletal: denies: Joint pain, Joint swelling, Muscle pain, Muscle stiffness, back pain Hematologic/Lymphatic: denies: Anemia, Easy bleeding, Easy bruising, Blood clots Neurological/Psychological: denies: Confusion, Dementia, Depression, Loss of consciousness,+ tremors Skin: No lesions, no masses, no skin breakdown, no abscesses Physical Exam - Vital signs Interpretation: Hypertensive. No: Bradycardic, Tachycardic - General General appearance: Appears well, Alert - HEENT Head: Normocephalic, Atraumatic Eyes: Normal Pupils: PERRL - Respiratory Respiratory status: No respiratory distress Chest status: Nontender Breath sounds: Normal Chest palpation: Normal - Cardiovascular Rhythm: Regular Heart sounds: Normal auscultation Murmur: No - Abdominal Inspection: Normal Distension: No distension Bowel sounds: Normal Tenderness: Nontender Organomegaly: No organomegaly - Back Back: Normal, Nontender - Extremities General upper extremity: Normal inspection, Nontender, Normal color, Normal ROM, Normal temperature General lower extremity: Normal inspection, Nontender, Normal color, Normal ROM, Normal temperature, Normal weight bearing. No: Kelly's sign - Neurological Neuro grossly intact: Yes Cognition: Normal Orientation: AAOx4 [place] Coma Scale Eye Opening: Spontaneous [place] Coma Scale Verbal: Oriented [place] Coma Scale Motor: Obeys Commands Samantha Coma Scale Total: 15 Speech: Normal Motor strength normal: LUE, RUE, LLE, RLE Sensory: Normal Notes: Intermittent complete body spasms last for a few seconds. - Psychological Associated symptoms: Normal affect, Normal mood - Skin Skin Temperature: Warm Skin Moisture: Dry Skin Color: Normal Course - Re-evaluation Re-evalutation: 06/05/19 21:04 Patient quite hypertensive. Blood pressure is 190/100. Denies any chest pain at this time. Has a normal sinus rhythm. No evidence of A. fib. No bradycardia arrhythmias. Afebrile. Neurological exam was unremarkable. Has good upper and lower extremity strength. Clear speech. Unlikely a stroke but based on this reported abnormal neurological symptoms as reported by a friend who is a former know if so I am going to go ahead and get a head CT. Of note, patient is quite hypertensive at 188/121. Likely this is more a day hypertensive emergency. I am going to try and slowly get her blood pressure down. More likely she will need to be admitted for syncope work-up, hypertensive emergency 06/05/19 22:13 Patient observed in the room now vomiting with significant amount of spasms/inv oluntary jerking motions similar to Parkinson's. Very concerned about that. Unfortunately her blood pressure is still 180/110. She will need to be admitted. Will consult with the hospitalist at this time. Laboratory 06/05/19 06/05/19 06/05/19 20:42 20:42 20:42 WBC 6.4 RBC 4.36 Hgb 13.0 Hct 39.2 MCV 90 MCH 29.9 MCHC 33.3 RDW 14.7 H Plt Count 363 Seg Neutrophils % 53.3 Lymphocytes % 34.0 Monocytes % 10.6 Eosinophils % 1.0 Basophils % 1.1 Absolute Neutrophils 3.4 Absolute Lymphocytes 2.2 Absolute Monocytes 0.7 Absolute Eosinophils 0.1 Absolute Basophils 0.1 PT INR APTT Sodium 129.4 L Potassium 4.3 Chloride 94 L Carbon Dioxide 28 Anion Gap 7 BUN 13 Creatinine 0.59 Est GFR ( Amer) > 60 Est GFR (Non-Af Amer) > 60 Glucose 135 H Calcium 9.8 Total Bilirubin 0.4 Direct Bilirubin 0.2 Neonat Total Bilirubin Not Reportable Neonat Direct Bilirubin Not Reportable Neonat Indirect Bili Not Reportable AST 43 H ALT 18 Alkaline Phosphatase 66 Creatine Kinase 81 CK-MB (CK-2) 3.02 Troponin I < 0.012 Total Protein 7.3 Albumin 4.4 06/05/19 20:42 WBC RBC Hgb Hct MCV MCH MCHC RDW Plt Count Seg Neutrophils % Lymphocytes % Monocytes % Eosinophils % Basophils % Absolute Neutrophils Absolute Lymphocytes Absolute Monocytes Absolute Eosinophils Absolute Basophils PT 13.0 INR 0.98 APTT 36.5 H Sodium Potassium Chloride Carbon Dioxide Anion Gap BUN Creatinine Est GFR ( Amer) Est GFR (Non-Af Amer) Glucose Calcium Total Bilirubin Direct Bilirubin Neonat Total Bilirubin Neonat Direct Bilirubin Neonat Indirect Bili AST ALT Alkaline Phosphatase Creatine Kinase CK-MB (CK-2) Troponin I Total Protein Albumin Chest X-Ray 06/05/19 20:37 IMPRESSION: 1. No acute pulmonary findings. 2. Aortic atherosclerosis as on prior exam. Head CT 06/05/19 20:37 IMPRESSION: 1. No acute intracranial findings. - Laboratory Result Diagrams: 06/05/19 20:42 06/05/19 20:42 Laboratory results interpreted by me: 06/05/19 06/05/19 06/05/19 20:42 20:42 20:42 RDW 14.7 H APTT 36.5 H Sodium 129.4 L Chloride 94 L Glucose 135 H AST 43 H - EKG Interpretation by Pa EKG shows normal: Sinus rhythm, [place], Intervals, QRS Complexes, ST-T Waves Critical Care Note - Critical Care Note Total time excluding time spent on procedures (mins): 35 Comments: Hypertensive emergency, rapid assessment, Discharge - Discharge Clinical Impression: Hypertensive emergency, Hyponatremia Intractable vomiting Qualifiers: Vomiting type: unspecified Nausea presence: with nausea Qualified Code(s): R11.2 - Nausea with vomiting, unspecified Syncope Qualifiers: Syncope type: unspecified Qualified Code(s): R55 - Syncope and collapse Condition: Good Disposition: ADMITTED INPATIENT Admitting Provider: Thor (Hospitalist) Unit Admitted: IMCU Referrals: PARIS LAZO MD [Primary Care Provider] - Follow up as needed
[2019-06-05 20:54] LABS: ABSOLUTE BASOPHILS # (AUTO) 0.1 10^3/uL (0.0-0.2); ABSOLUTE EOSINOPHILS # (AUTO) 0.1 10^3/uL (0.0-0.6); ABSOLUTE LYMPHOCYTES (AUTO) 2.2 10^3/uL (0.5-4.7); ABSOLUTE MONOCYTES (AUTO) 0.7 10^3/uL (0.1-1.4); ABSOLUTE NEUT (AUTO) 3.4 10^3/uL (1.7-8.2); BASOPHILS % (AUTO) 1.1 % (0-2); HEMATOCRIT 39.2 % (36.0-47.0); MEAN CORPUSCULAR HEMOGLOBIN 29.9 pg (27.0-33.4); MEAN CORPUSCULAR HGB CONC 33.3 g/dL (32.0-36.0); MEAN CORPUSCULAR VOLUME 90 fl (80-97); MONOCYTES % (AUTO) 10.6 % (3-13); PLATELET COUNT 363 10^3/uL (150-450); RED BLOOD COUNT 4.36 10^6/uL (3.72-5.28); RED CELL DISTRIBUTION WIDTH 14.7 % (11.5-14.0); SEGMENTED NEUTROPHILS % (AUTO) 53.3 % (42-78); TOTAL CELLS COUNTED % (AUTO) 100 %; WHITE BLOOD COUNT 6.4 10^3/uL (4.0-10.5)
[2019-06-05] MEDS ORDERED: HYDRALAZINE HCL 25 MG TABLET PO ONE (21:06)
[2019-06-05] MEDS ORDERED: NICARDIPINE HCL RTU, ISO-OS 20 MG/200 ML RTUINJ IV PRN ×2 (21:07→21:23)
[2019-06-05 21:14] LABS: ALBUMIN 4.4 g/dL (3.5-5.0); ALKALINE PHOSPHATASE 66 U/L (38-126); ANION GAP 7 (5-19); ASPARTATE AMINO TRANSFERASE 43 U/L (14-36); BILIRUBIN,DIRECT 0.2 mg/dL (0.0-0.4); BILIRUBIN,TOTAL 0.4 mg/dL (0.2-1.3); BLOOD UREA NITROGEN 13 mg/dL (7-20); CALCIUM 9.8 mg/dL (8.4-10.2); CARBON DIOXIDE 28 mmol/L (22-30); CHLORIDE 94 mmol/L (98-107); CREATINE KINASE 81 U/L (30-135); GLUCOSE 135 mg/dL (75-110); POTASSIUM 4.3 mmol/L (3.6-5.0); TOTAL PROTEIN 7.3 g/dL (6.3-8.2)
--- NOTE | 2019-06-05 21:19 | RADIOLOGY REPORT (SQ) ---
EXAM DESCRIPTION: [facility]: XR CHEST 1 VIEW CLINICAL HISTORY: 73 years Female, syncope COMPARISON: 04/05/2018 FINDINGS: Lungs are clear, with no focal infiltrate, pneumothorax, or pleural effusion. Aortic calcifications are noted. No aortic aneurysm. Heart size is normal. A cervical spine fixation plate is partially visualized. IMPRESSION: 1. No acute pulmonary findings. 2. Aortic atherosclerosis as on prior exam.
[2019-06-05] MEDS ORDERED: ONDANSETRON HCL INJ/PF 4 MG/2 ML SDV IV ONE (21:23)
[2019-06-05 21:25] LABS: CREATINE KINASE MB 3.02 ng/mL (<4.55); INTERNATIONAL RATION (INR) 0.98
[2019-06-05 21:26] LABS: PARTIAL THROMBOPLASTIN TIME 36.5 SEC (23.5-35.8); TROPONIN I < 0.012 ng/mL
--- NOTE | 2019-06-05 21:45 | RADIOLOGY REPORT (SQ) ---
EXAM DESCRIPTION: Rad[facility]: CT HEAD WITHOUT IV CONTRAST CLINICAL HISTORY: 73 years Female; syncope and slurred speech TECHNIQUE: Noncontrast CT head. All CT scans at this facility use dose modulation, iterative reconstruction, and/or weight based dosing when appropriate to reduce radiation dose to as low as reasonably achievable. COMPARISON: 07/01/2018 FINDINGS: Grimm matter, white matter, ventricles, and cisterns are within normal limits. No acute hemorrhage or mass effect. Visualized portions of paranasal sinuses and mastoids are clear. Visualized portions of the calvarium are within normal limits. IMPRESSION: 1. No acute intracranial findings.
[2019-06-05] MEDS ORDERED: NORMAL SALINE 500 ML IV ONE (22:02)
[2019-06-05] MEDS ORDERED: MAG HYDROX/AL HYDROX/SIMETH SUSP 30 ML UDCUP PO PRN (22:59)
[2019-06-05] MEDS ORDERED: IPRATROPIUM/ALBUTEROL 0.5-2.5 MG/3 ML AMPUL NEB PRN (22:59)
[2019-06-05] MEDS ORDERED: DEXTROSE 50%-WATER 25 GM/50 ML DISP.SYRIN IV PRN ×2 (22:59)
[2019-06-05] MEDS ORDERED: DEXTROSE 40% GEL 15 GM TUBE PO PRN ×2 (22:59)
[2019-06-05] MEDS ORDERED: DIAZEPAM INJ 10 MG/2 ML DISP.SYRIN IV PRN (22:59)
[2019-06-05] MEDS ORDERED: GLUCAGON,HUMAN RECOMB 1 MG INJ IM PRN (22:59)
[2019-06-05] MEDS ORDERED: TRAZODONE HCL 50 MG TABLET PO ONE (23:00)
[2019-06-05] MEDS ORDERED: NITROGLYCERIN 2% OINTMENT 1 GM PACKET TP ONE (23:08)
[2019-06-05] MEDS ORDERED: LORAZEPAM INJ 2 MG/1 ML VIAL IV ONE (23:10)
--- NOTE | 2019-06-05 23:14 | EKG REPORT ---
SEVERITY:- NORMAL ECG - SINUS RHYTHM : Confirmed by: Johanne Roberts MD 05-Jun-2019 23:12:40
[2019-06-05 23:22] LABS: APPEARANCE,URINE CLEAR; BILIRUBIN,URINE NEGATIVE (NEGATIVE); COLOR,URINE YELLOW; GLUCOSE, URINE NEGATIVE (NEGATIVE); KETONES,URINE NEGATIVE (NEGATIVE); LEUKOCYTE ESTERASE,URINE NEGATIVE (NEGATIVE); NITRITE,URINE NEGATIVE (NEGATIVE); PROTEIN,URINE 30 mg/dL (NEGATIVE); UROBILINOGEN,URINE NEGATIVE mg/dL (<2.0)
--- NOTE | 2019-06-05 23:57 | RADIOLOGY REPORT (SQ) ---
EXAM DESCRIPTION: XR ABDOMEN 2 VIEWS SUPINE ERECT COMPLETED DATE/TME: 06/05/2019 23:10 CLINICAL HISTORY: 73 years, Female, vomiting and pain COMPARISON: None. NUMBER OF VIEWS: TECHNIQUE: LIMITATIONS: None. FINDINGS: There are several loops of mildly dilated small bowel in the mid and lower abdomen, compatible with either early or partial obstruction or small bowel ileus. No free air. There is evidence of prior abdominal surgery. IMPRESSION: Early or partial small bowel obstruction versus small bowel ileus. copyright 2010 [employer]- All Rights Reserved
[2019-06-06 00:19] LABS: URINE AMPHETAMINES SCREEN NEGATIVE; URINE BARBITURATES SCREEN NEGATIVE; URINE BENZODIAZEPINES SCREEN UNCONFIRMED POSITIVE; URINE COCAINE SCREEN NEGATIVE; URINE MARIJUANA (THC) SCREEN NEGATIVE; URINE METHADONE SCREEN NEGATIVE; URINE PHENCYCLIDINE SCREEN NEGATIVE
[2019-06-06] MEDS ORDERED: HYDRALAZINE HCL INJ/PF 20 MG/1 ML SDV IV PRN (01:13)
[2019-06-06] MEDS: INSULIN LISPRO 100 UNIT/ML 3 ML VIAL SUBCUT SCH ×4 (01:42→17:37)
[2019-06-06] MEDS ORDERED: CARBIDOPA/LEVODOPA 25-100 MG TABLET PO ONE (01:45)
[2019-06-06 02:43] LABS: ABSOLUTE BASOPHILS # (AUTO) 0.1 10^3/uL (0.0-0.2); ABSOLUTE LYMPHOCYTES (AUTO) 1.4 10^3/uL (0.5-4.7); ABSOLUTE MONOCYTES (AUTO) 0.4 10^3/uL (0.1-1.4); ABSOLUTE NEUT (AUTO) 6.1 10^3/uL (1.7-8.2); BASOPHILS % (AUTO) 0.9 % (0-2); EOSINOPHILS % (AUTO) 0.1 % (0-6); HEMATOCRIT 36.6 % (36.0-47.0); HEMOGLOBIN 12.3 g/dL (12.0-15.5); LYMPHOCYTES % (AUTO) 17.1 % (13-45); MEAN CORPUSCULAR HEMOGLOBIN 29.7 pg (27.0-33.4); MEAN CORPUSCULAR HGB CONC 33.6 g/dL (32.0-36.0); MEAN CORPUSCULAR VOLUME 88 fl (80-97); MONOCYTES % (AUTO) 5.3 % (3-13); PLATELET COUNT 325 10^3/uL (150-450); RED BLOOD COUNT 4.14 10^6/uL (3.72-5.28); RED CELL DISTRIBUTION WIDTH 14.8 % (11.5-14.0); SEGMENTED NEUTROPHILS % (AUTO) 76.6 % (42-78); TOTAL CELLS COUNTED % (AUTO) 100 %
[2019-06-06 03:24] LABS: ALKALINE PHOSPHATASE 52 U/L (38-126); ANION GAP 11 (5-19); ASPARTATE AMINO TRANSFERASE 24 U/L (14-36); BILIRUBIN,DIRECT 0.2 mg/dL (0.0-0.4); BILIRUBIN,TOTAL 0.5 mg/dL (0.2-1.3); BLOOD UREA NITROGEN 11 mg/dL (7-20); CALCIUM 9.4 mg/dL (8.4-10.2); CARBON DIOXIDE 26 mmol/L (22-30); CHLORIDE 93 mmol/L (98-107); CHOLESTEROL 118.85 mg/dL (0-200); GLUCOSE 156 mg/dL (75-110); POTASSIUM 4.5 mmol/L (3.6-5.0); TOTAL PROTEIN 6.5 g/dL (6.3-8.2); TRIGLYCERIDES 50 mg/dL (<150)
[2019-06-06 04:08] LABS: DIRECT LDL 57 mg/dL (<100)
[2019-06-06 05:52] LABS: ABSOLUTE RETICS # 0.034 10^6/uL (0.028-0.122); RETICULOCYTE COUNT (AUTO) 0.82 % (0.66-2.85)
--- NOTE | 2019-06-06 05:57 | PDOC H&P ---
History of Present Illness Admission Date/PCP: 06/05/19 22:24 PARIS LAZO MD Patient complains of: Fall History of Present Illness: KULDIP RANDOLPH is a 73 year old female with a past medical history of diabetes, hypertension, dyslipidemia, depression, anxiety and severe restless leg syndrome refractory to multiple agents. She presents after lightheadedness and difficulty standing secondary to uncoordinated leg movement. She also felt as though she was going to pass out but did not she was assisted to the ground by her friend without resulting injury. She admits to multiple previous episodes she denies recent change in medications she denies headache blurred vision difficulty with speech shortness of breath or palpitations. In the emergency room she is found to have intractable lower extremity akathisias. Patient admits this is been going on for years but is recently worsened. Work-up is otherwise unremarkable she is referred to the hospitalist for admission. Past Medical History Cardiac Medical History: Reports: Hypertension Denies: Coronary Artery Disease, Myocardial Infarction Pulmonary Medical History: Reports: Bronchitis - Last time 2 yrs ago Denies: Asthma, Chronic Obstructive Pulmonary Disease (COPD), Pneumonia Neurological Medical History: Denies: Seizures GI Medical History: Reports: Hiatal Hernia Denies: Hepatitis Musculoskeltal Medical History: Reports: Arthritis - All joints Psychiatric Medical History: Reports: Depression Denies: Tobacco Dependency Hematology: Reports: Anemia Denies: Sickle Cell Disease Past Surgical History Past Surgical History: Reports: Hysterectomy Denies: Amputation, Mastectomy, Pacemaker Social History Information Source: Patient, [facility] Records Lives with: Alone Smoking Status: Never Smoker Frequency of Alcohol Use: None Drugs: None - Advance Directive Resuscitation Status: Full Code Family History Family History: Hypertension Parental Family History Reviewed: Yes Children Family History Reviewed: Yes Sibling(s) Family History Reviewed.: Yes Medication/Allergy Home Medications: Aspirin [Aspirin EC] 81 mg PO DAILY 04/07/16 Calcium Phosphate Trib/Vit D3 [Citracal + D3 Gummies] 1 each PO DAILY 04/07/16 Cholecalciferol (Vitamin D3) [Vitamin D] 50,000 unit PO WE 04/07/16 Diazepam 2.5 - 5 mg PO TID 04/07/16 Estradiol [Estrace] 1 gm VG WE 04/07/16 Ezetimibe [Zetia 10 mg Tablet] 10 mg PO QAM 04/07/16 Fluticasone Propionate [Flonase Nasal [place] 50 Mcg/[place] 16 gm] 1 spray NASL DAILY 04/07/16 Gabapentin 100 mg PO BID 04/07/16 Gabapentin 200 mg PO QHS 04/07/16 Guar Gum [Benefiber] 1 each PO DAILY PRN 04/07/16 Liraglutide [Victoza 2-Mane] 1.2 mg SQ DAILY 04/07/16 Lisinopril 20 mg PO DAILY 04/07/16 Magnesium Oxide 400 mg PO DAILY 04/07/16 Menthol [Biofreeze] 118 ml TP ASDIR PRN 04/07/16 Metformin HCl [Glucophage] 1,000 mg PO BID 04/07/16 Metoprolol Succinate 12.5 mg PO QHS 04/07/16 Multivit-Min/Iron/Folic/Lutein [Centrum Silver Women Tablet] 1 each PO DAILY 04/07/16 Oxybutynin Chloride [Ditropan Xl] 10 mg PO DAILY 04/07/16 Paroxetine HCl [Paxil] 20 mg PO DAILY 04/07/16 Pramipexole Di-HCl [Pramipexole Dihydrochloride] 0.5 mg PO QHS 04/07/16 Besifloxacin HCl [Besivance 0.6% Oph Susp 5 ml] 1 drop OP ASDIR PRN 05/08/16 Difluprednate [Durezol] 1 drop OP ASDIR PRN 05/08/16 Nepafenac [Ilevro] 1 drop OP DAILY 05/08/16 Hydrocodone/Acetaminophen [[place] 5-325 mg Tablet] 1 tab PO TID PRN #12 tablet 07/01/18 Allergies/Adverse Reactions: cephalexin monohydrate [From Keflex] Allergy (Severe, Verified 05/29/16 08:47) C-Diff clarithromycin [From Biaxin] Allergy (Severe, Verified 05/29/16 08:47) Abdominal pain cyclobenzaprine HCl [From Flexeril] Allergy (Severe, Verified 05/29/16 08:47) Legs jerk meperidine HCl [From Demerol] Allergy (Severe, Verified 05/29/16 08:47) Blood pressure drops, decreased respirations metoclopramide HCl [From Reglan] Allergy (Severe, Verified 05/29/16 08:47) Legs jerk promethazine HCl [From Phenergan] Allergy (Severe, Verified 05/29/16 08:47) Legs jerk pseudoephedrine HCl [From Sudafed] Allergy (Severe, Verified 05/29/16 08:47) Palpitations scopolamine Allergy (Severe, Verified 05/29/16 08:47) Legs jerk Sulfa eye drops Allergy (Severe, Uncoded 05/29/16 08:47) swelling, itching,watering of the eyes Review of Systems Constitutional: PRESENT: as per HPI, fatigue, weakness. ABSENT: chills, fever(s), headache(s), weight gain, weight loss Eyes: ABSENT: visual disturbances Ears: ABSENT: hearing changes Cardiovascular: ABSENT: chest pain, dyspnea on exertion, edema, orthropnea, palpitations Respiratory: ABSENT: cough, hemoptysis Gastrointestinal: ABSENT: abdominal pain, constipation, diarrhea, hematemesis, hematochezia, nausea, vomiting Genitourinary: PRESENT: other - Long-term urinary incontinence. ABSENT: dysu uriel, hematuria Musculoskeletal: PRESENT: as per HPI, muscle weakness, other - Spasticity and severe restless legs. ABSENT: joint swelling Integumentary: ABSENT: rash, wounds Neurological: ABSENT: abnormal gait, abnormal speech, confusion, dizziness, focal weakness, syncope Psychiatric: ABSENT: anxiety, depression, homidical ideation, suicidal ideation Endocrine: ABSENT: cold intolerance, heat intolerance, polydipsia, polyuria Hematologic/Lymphatic: ABSENT: easy bleeding, easy bruising Physical Exam Vital Signs: Temp Pulse Resp BP Pulse Ox 98.2 F 89 16 158/77 H 98 06/06/19 02:20 06/06/19 02:54 06/06/19 04:15 06/06/19 02:20 06/06/19 04:15 Intake & Output 06/04/19 06/05/19 06/06/19 11:59 11:59 11:59 Intake Total 500 Balance 500 Weight 76.204 kg General appearance: PRESENT: cooperative, mild distress, obese, well-developed, well-nourished Head exam: PRESENT: atraumatic, normocephalic Eye exam: PRESENT: conjunctiva pink, EOMI, PERRLA. ABSENT: scleral icterus Ear exam: PRESENT: normal external ear exam Mouth exam: PRESENT: moist, tongue midline Neck exam: ABSENT: carotid bruit, JVD, lymphadenopathy, thyromegaly Respiratory exam: PRESENT: clear to auscultation julia. ABSENT: rales, rhonchi, wheezes Cardiovascular exam: PRESENT: RRR. ABSENT: diastolic murmur, rubs, systolic murmur Pulses: PRESENT: normal dorsalis pedis pul Vascular exam: PRESENT: normal capillary refill GI/Abdominal exam: PRESENT: normal bowel sounds, soft. ABSENT: distended, guarding, mass, organolmegaly, rebound, tenderness Rectal exam: PRESENT: deferred Extremities exam: PRESENT: full ROM. ABSENT: calf tenderness, clubbing, pedal edema Musculoskeletal exam: PRESENT: ambulatory, full ROM, other - Normal tonicity, reflexes +2. ABSENT: deformity, dislocation Neurological exam: PRESENT: alert, awake, oriented to person, oriented to place, oriented to time, oriented to situation, CN II-XII grossly intact. ABSENT: motor sensory deficit, normal gait Psychiatric exam: PRESENT: appropriate affect, normal mood. ABSENT: homicidal ideation, suicidal ideation Skin exam: PRESENT: dry, intact, warm. ABSENT: cyanosis, rash Results Laboratory Results: 06/06/19 02:34 06/06/19 02:34 06/05/19 06/05/19 06/05/19 20:42 20:42 20:42 WBC 6.4 RBC 4.36 Hgb 13.0 Hct 39.2 MCV 90 MCH 29.9 MCHC 33.3 RDW 14.7 H Plt Count 363 Seg Neutrophils % 53.3 Lymphocytes % 34.0 Monocytes % 10.6 Eosinophils % 1.0 Basophils % 1.1 Absolute Neutrophils 3.4 Absolute Lymphocytes 2.2 Absolute Monocytes 0.7 Absolute Eosinophils 0.1 Absolute Basophils 0.1 Sodium 129.4 L Potassium 4.3 Chloride 94 L Carbon Dioxide 28 Anion Gap 7 BUN 13 Creatinine 0.59 Est GFR ( Amer) > 60 Est GFR (Non-Af Amer) > 60 Glucose 135 H Calcium 9.8 Total Bilirubin 0.4 AST 43 H Alkaline Phosphatase 66 Total Protein 7.3 Albumin 4.4 Triglycerides Cholesterol LDL Cholesterol Direct VLDL Cholesterol HDL Cholesterol TSH 0.76 Urine Color Urine Appearance Urine pH Ur Specific [place] Urine Protein Urine Glucose (UA) Urine Ketones Urine Blood Urine Nitrite Ur Leukocyte Esterase Urine WBC (Auto) Urine RBC (Auto) 06/05/19 06/06/19 06/06/19 21:06 02:34 02:34 WBC 8.0 RBC 4.14 Hgb 12.3 Hct 36.6 MCV 88 MCH 29.7 MCHC 33.6 RDW 14.8 H Plt Count 325 Seg Neutrophils % 76.6 Lymphocytes % 17.1 Monocytes % 5.3 Eosinophils % 0.1 Basophils % 0.9 Absolute Neutrophils 6.1 Absolute Lymphocytes 1.4 Absolute Monocytes 0.4 Absolute Eosinophils 0.0 Absolute Basophils 0.1 Sodium 130.2 L Potassium 4.5 Chloride 93 L Carbon Dioxide 26 Anion Gap 11 BUN 11 Creatinine 0.62 Est GFR ( Amer) > 60 Est GFR (Non-Af Amer) > 60 Glucose 156 H Calcium 9.4 Total Bilirubin 0.5 AST 24 Alkaline Phosphatase 52 Total Protein 6.5 Albumin 4.0 Triglycerides 50 Cholesterol 118.85 LDL Cholesterol Direct 57 VLDL Cholesterol 10.0 HDL Cholesterol 70 TSH Urine Color YELLOW Urine Appearance CLEAR Urine pH 7.0 Ur Specific [place] 1.010 Urine Protein 30 H Urine Glucose (UA) NEGATIVE Urine Ketones NEGATIVE Urine Blood SMALL H Urine Nitrite NEGATIVE Ur Leukocyte Esterase NEGATIVE Urine WBC (Auto) 3 Urine RBC (Auto) 2 06/05/19 06/05/19 06/06/19 20:42 20:42 02:34 Creatine Kinase 81 CK-MB (CK-2) 3.02 Troponin I < 0.012 < 0.012 Impressions: Chest X-Ray 06/05/19 20:37 IMPRESSION: 1. No acute pulmonary findings. 2. Aortic atherosclerosis as on prior exam. Head CT 06/05/19 20:37 IMPRESSION: 1. No acute intracranial findings. Abdomen X-Ray 06/05/19 23:10 IMPRESSION: Early or partial small bowel obstruction versus small bowel ileus. copyright 2010 [employer]- All Rights Reserved Assessment and Plan - Diagnosis (1) Hypertensive emergency Is this a current diagnosis for this admission?: Yes Plan: Telemetry admission, hydralazine PRN and outpatient regiment (2) Weakness Is this a current diagnosis for this admission?: Yes Plan: Restless leg versus CVA, follow-up MRI and physical therapy (3) Akathisia Is this a current diagnosis for this admission?: Yes Plan: Versus restless leg, follow-up iron, trial Sinemet, consider neurology consult (4) Hyponatremia Is this a current diagnosis for this admission?: Yes Plan: Appears euvolemic, follow-up chemistry - Time Time Spent with patient: 35 or more minutes - Inpatient Certification Medical Necessity: Need Close Monitoring Due to Risk of Patient Decompensation
[2019-06-06] MEDS: HEPARIN SOD (PORCINE) 5,000 UNIT/ML 1 ML VIAL SUBCUT SCH ×3 (06:52→21:08)
[2019-06-06 07:08] LABS: FOLATE > 20.00 ng/mL (>2.76)
--- NOTE | 2019-06-06 09:07 | RADIOLOGY REPORT (SQ) ---
EXAM DESCRIPTION: MRI HEAD WITHOUT COMPLETED DATE/TIME: 06/06/2019 8:34 am REASON FOR STUDY: ataxia COMPARISON: Same day CT brain TECHNIQUE: Multiplanar imaging includes non-contrasted T1, T2, FLAIR, and diffusion with ADC map seq uences. Images stored on PACS. LIMITATIONS: None. FINDINGS: ANATOMY: No anomalies. Normal vascular flow voids. Pituitary fossa normal. CSF SPACES: Normal in size and contour. No hemorrhage. CEREBRUM: Sulci and gyri normal in size and contour. There is periventricular and pontine white patsy er T2/FLAIR hyperintensity with small nonacute bilateral cortical infarcts, for example in the right frontal and right parietal lobes (series 7, image 22). No evidence of hemorrhage, mass, or extraaxia l fluid collection. POSTERIOR FOSSA: No signal alteration. No hemorrhage. No edema, masses or mass effect. Internal suzi tory canals, cerebello-pontine angles, mastoids normal. DIFFUSION IMAGING: Negative for acute or sub-acute infarction. ORBITS: No masses. Globes normal. PARANASAL SINUSES: No fluid levels. Mucosa normal. OTHER: No other significant finding. IMPRESSION: 1. No acute noncontrast MR intracranial pathology. 2. There is periventricular and pontine white matter T2/FLAIR hyperintensity with small nonacute bila teral cortical infarcts, for example in the right frontal and right parietal lobes (series 7, image 2 2). Findings are most likely sequelae of small prior infarctions and small vessel white matter disea se, however pontine white matter abnormalities can be seen in the setting of acute sodium disturbance s. Correlate with potential underlying medical factors if applicable. EVIDENCE OF ACUTE STROKE: NO. TECHNICAL DOCUMENTATION: JOB ID: [id number] [employer]- All Rights Reserved Reading location - IP/workstation name: [email or web address]
[2019-06-06] MEDS: CARBIDOPA/LEVODOPA 25-100 MG TABLET PO SCH ×2 (09:30→21:08)
[2019-06-06] MEDS ORDERED: MECLIZINE HCL 25 MG TABLET PO PRN (10:37)
[2019-06-06] MEDS ORDERED: ACETAMINOPHEN 325 MG TABLET PO PRN (10:37)
--- NOTE | 2019-06-06 11:17 | PDOC PROGRESS REPORT ---
Subjective Progress Note for:: 06/06/19 Subjective:: This is a 73 yr old female with a PMH of diabetes, hypertension, dyslipidemia, depression, anxiety and severe restless leg syndrome who presented with dizziness. She was noted to significant jerking of her right lower extremity upon presentation. She was admitted for a question of a possible CVA. No acute event overnight. Upon encounter, patient was sleeping comfortably. Upon waking up she did have a few episodes of jerking movements on her right lower extremity. She says that this has been chronic since she had a back surgery in 2008. She says she gets muscle spasms on the right leg. She says her PCP has tried multiple medications with only mild relief. She tells me that she woke up yesterday morning and felt lightheaded and felt that the room was spinning around her. She says with this and her right lower leg drinking, it was very difficult for her to set up or ambulate. She says that the vertigo is a little better this morning. He does complain of mild headache. She denies any recent sinus infection or URTI but does state that she has chronic on and off cough and colds from her allergies. Reason For Visit: ENCEPHALOPATHY HTN, ANXIETY, NASUEA, TIA Physical Exam Vital Signs: Temp Pulse Resp BP Pulse Ox 98.2 F 89 16 158/77 H 98 06/06/19 02:20 06/06/19 02:54 06/06/19 04:15 06/06/19 02:20 06/06/19 04:15 Intake & Output 06/05/19 06/06/19 06/07/19 06:59 06:59 06:59 Intake Total 500 Balance 500 Weight 167 lb 15.876 oz General appearance: PRESENT: no acute distress, well-developed, well-nourished Head exam: PRESENT: atraumatic, normocephalic Eye exam: PRESENT: conjunctiva pink, EOMI, PERRLA. ABSENT: scleral icterus Ear exam: PRESENT: normal external ear exam Mouth exam: PRESENT: moist, tongue midline Neck exam: ABSENT: carotid bruit, JVD, lymphadenopathy, thyromegaly Respiratory exam: PRESENT: clear to auscultation julia. ABSENT: rales, rhonchi, wheezes Cardiovascular exam: PRESENT: RRR. ABSENT: diastolic murmur, rubs, systolic murmur Pulses: PRESENT: normal dorsalis pedis pul GI/Abdominal exam: PRESENT: normal bowel sounds, soft. ABSENT: distended, guarding, mass, organolmegaly, rebound, tenderness Rectal exam: PRESENT: deferred Neurological exam: PRESENT: alert, awake, oriented to person, oriented to place, oriented to time, oriented to situation, CN II-XII grossly intact, other - occasional jerky movements on the right leg. ABSENT: motor sensory deficit Results Laboratory Results: 06/06/19 02:34 06/06/19 02:34 06/05/19 06/05/19 06/05/19 20:42 20:42 20:42 WBC 6.4 RBC 4.36 Hgb 13.0 Hct 39.2 MCV 90 MCH 29.9 MCHC 33.3 RDW 14.7 H Plt Count 363 Seg Neutrophils % 53.3 Lymphocytes % 34.0 Monocytes % 10.6 Eosinophils % 1.0 Basophils % 1.1 Absolute Neutrophils 3.4 Absolute Lymphocytes 2.2 Absolute Monocytes 0.7 Absolute Eosinophils 0.1 Absolute Basophils 0.1 Retic Count (auto) Absolute Retic Sodium 129.4 L Potassium 4.3 Chloride 94 L Carbon Dioxide 28 Anion Gap 7 BUN 13 Creatinine 0.59 Est GFR ( Amer) > 60 Est GFR (Non-Af Amer) > 60 Glucose 135 H Calcium 9.8 Iron TIBC Ferritin Total Bilirubin 0.4 AST 43 H Alkaline Phosphatase 66 Total Protein 7.3 Albumin 4.4 Triglycerides Cholesterol LDL Cholesterol Direct VLDL Cholesterol HDL Cholesterol Vitamin B12 Folate TSH 0.76 Urine Color Urine Appearance Urine pH Ur Specific [place] Urine Protein Urine Glucose (UA) Urine Ketones Urine Blood Urine Nitrite Ur Leukocyte Esterase Urine WBC (Auto) Urine RBC (Auto) 06/05/19 06/06/19 06/06/19 21:06 02:34 02:34 WBC 8.0 RBC 4.14 Hgb 12.3 Hct 36.6 MCV 88 MCH 29.7 MCHC 33.6 RDW 14.8 H Plt Count 325 Seg Neutrophils % 76.6 Lymphocytes % 17.1 Monocytes % 5.3 Eosinophils % 0.1 Basophils % 0.9 Absolute Neutrophils 6.1 Absolute Lymphocytes 1.4 Absolute Monocytes 0.4 Absolute Eosinophils 0.0 Absolute Basophils 0.1 Retic Count (auto) Absolute Retic Sodium 130.2 L Potassium 4.5 Chloride 93 L Carbon Dioxide 26 Anion Gap 11 BUN 11 Creatinine 0.62 Est GFR ( Amer) > 60 Est GFR (Non-Af Amer) > 60 Glucose 156 H Calcium 9.4 Iron TIBC Ferritin Total Bilirubin 0.5 AST 24 Alkaline Phosphatase 52 Total Protein 6.5 Albumin 4.0 Triglycerides 50 Cholesterol 118.85 LDL Cholesterol Direct 57 VLDL Cholesterol 10.0 HDL Cholesterol 70 Vitamin B12 Folate TSH Urine Color YELLOW Urine Appearance CLEAR Urine pH 7.0 Ur Specific [place] 1.010 Urine Protein 30 H Urine Glucose (UA) NEGATIVE Urine Ketones NEGATIVE Urine Blood SMALL H Urine Nitrite NEGATIVE Ur Leukocyte Esterase NEGATIVE Urine WBC (Auto) 3 Urine RBC (Auto) 2 06/06/19 06/06/19 02:34 02:34 WBC RBC Hgb Hct MCV MCH MCHC RDW Plt Count Seg Neutrophils % Lymphocytes % Monocytes % Eosinophils % Basophils % Absolute Neutrophils Absolute Lymphocytes Absolute Monocytes Absolute Eosinophils Absolute Basophils Retic Count (auto) 0.82 Absolute Retic 0.034 Sodium Potassium Chloride Carbon Dioxide Anion Gap BUN Creatinine Est GFR ( Amer) Est GFR (Non-Af Amer) Glucose Calcium Iron Not Reportable TIBC 355 Ferritin 22.00 Total Bilirubin AST Alkaline Phosphatase Total Protein Albumin Triglycerides Cholesterol LDL Cholesterol Direct VLDL Cholesterol HDL Cholesterol Vitamin B12 937.0 H Folate > 20.00 TSH Urine Color Urine Appearance Urine pH Ur Specific [place] Urine Protein Urine Glucose (UA) Urine Ketones Urine Blood Urine Nitrite Ur Leukocyte Esterase Urine WBC (Auto) Urine RBC (Auto) 06/05/19 06/05/19 06/06/19 20:42 20:42 02:34 Creatine Kinase 81 CK-MB (CK-2) 3.02 Troponin I < 0.012 < 0.012 Impressions: Chest X-Ray 06/05/19 20:37 IMPRESSION: 1. No acute pulmonary findings. 2. Aortic atherosclerosis as on prior exam. Head CT 06/05/19 20:37 IMPRESSION: 1. No acute intracranial findings. Abdomen X-Ray 06/05/19 23:10 IMPRESSION: Early or partial small bowel obstruction versus small bowel ileus. copyright 2011 [employer]- All Rights Reserved Assessment and Plan - Diagnosis (1) Vertigo Is this a current diagnosis for this admission?: Yes Plan: MRI shows a small bilateral cortical NON-acute infarcts. Carotid Doppler pend ing. This could be a possible BPPV. We will also check orthostatic vital signs. Will give a trial of Antivert and see if that helps. (2) HTN (hypertension) Is this a current diagnosis for this admission?: Yes Plan: BP this morning is on the low normal end. No medications on medlist. Will have home meds verified by pharmacy. (3) Restless leg syndrome Is this a current diagnosis for this admission?: Yes Plan: She says she has been tried on different medications. She says that Valium has given her some relief but she is being weaned off on it by her PCP. Discussed the option of referral to neuro and pursuing a spinal stimulator later. She says that she has been seen by a neurologist a few years back and that his stimulator has also been brought up but she is apprehensive about pursuing this option. Will request records from PCP to see what she has been tried on. Will try how she responds to ropinirole. (4) Hyponatremia Is this a current diagnosis for this admission?: Yes Plan: Improved. - Time Time Spent with patient: 25-34 minutes
[2019-06-06 11:47] LABS: IRON(TIBC) 85.8 ug/dL (37-170)
--- NOTE | 2019-06-06 12:35 | RADIOLOGY REPORT (SQ) ---
EXAM DESCRIPTION: CAROTID DOPPLER COMPLETED DATE/TIME: 06/06/2019 11:45 am REASON FOR STUDY: tia COMPARISON: CT CERVICAL SPINE 07/01/2018 CT BRAIN 06/05/2019 MRI BRAIN 06/06/2019 TECHNIQUE: Grayscale ultrasound, Doppler velocity and spectra, and color Doppler images acquired of the extra-cranial carotid and vertebral arteries. Images stored on PACS. LIMITATIONS: None. FINDINGS: RIGHT CAROTID CCA Velocities: Within normal limits. Right common carotid artery peak systolic velocity 0.98 m/sec. ICA Velocities Peak systolic 0.53 m/s. End diastolic 0.19 m/s. Proximal ICA/CCA peak systolic ratio normal. Calcific shadowing plaque at the origin of the right internal carotid artery. Just distal to shadowi ng plaque, velocities suggest no flow significant stenosis LEFT CAROTID CCA Velocities: Within normal limits. Left common carotid artery peak systolic velocity 0.69 m/sec. ICA Velocities Peak systolic 0.84 m/s. End diastolic 0.23 m/s. Proximal ICA/CCA peak systolic ratio normal. Minimal calcific shadowing plaque at the origin of the left internal carotid artery. Just distal to the shadowing plaque, velocities suggest no flow significant stenosis. VERTEBRAL ARTERIES: Antegrade flow. Normal waveforms. SUBCLAVIAN ARTERIES: Not evaluated OTHER: No other significant finding. IMPRESSION: NO HEMODYNAMICALLY SIGNIFICANT STENOSIS. COMMENT: Quality ID #[id number]: Velocity criteria are extrapolated from the diameter data as defined by t he Society of Radiologists in Ultrasound Consensus Conference. Radiology 2003: 229; 340-346. TECHNICAL DOCUMENTATION: JOB ID: [id number] [employer]- All Rights Reserved Reading location - IP/workstation name: [email or web address]
[2019-06-06] MEDS: ROPINIROLE HCL 1 MG TABLET PO SCH (21:08)
[2019-06-06] MEDS: TRAZODONE HCL 50 MG TABLET PO SCH (21:08)
[2019-06-07] MEDS: INSULIN LISPRO 100 UNIT/ML 3 ML VIAL SUBCUT SCH ×5 (04:36→23:11)
[2019-06-07] MEDS: HEPARIN SOD (PORCINE) 5,000 UNIT/ML 1 ML VIAL SUBCUT SCH ×3 (05:20→23:05)
--- NOTE | 2019-06-07 09:20 | Progress Note Acknowledgement ---
Progress Note Acknowledgement Progess Note Acknowledgement: I, the undersigned member of the medical staff with appropriate privileges and with supervisory authority over [ PAC], a dependent practice allied health professional, acknowledge that I have reviewed the progress notes entered on this patient, and in my professional judgment believe that the assessment made and/or any care evidenced was appropriate
--- NOTE | 2019-06-07 09:28 | PDOC PROGRESS REPORT ---
Subjective Progress Note for:: 06/07/19 Subjective:: 06/07/2019 patient was admitted for reportedly a hypertensive episode as well as anxiety and gait disturbance patient has had many years of restless leg syndrome and shaking and jerking of her legs and has seen multiple neurologist for this complaint. She also was admitted with a complaint of lightheaded. Reason For Visit: ENCEPHALOPATHY HTN, ANXIETY, NASUEA, TIA Physical Exam Vital Signs: Temp Pulse Resp BP Pulse Ox 98.4 F 87 16 115/55 L 96 06/07/19 07:09 06/07/19 07:09 06/07/19 07:09 06/07/19 07:09 06/07/19 07:09 Intake & Output 06/06/19 06/07/19 06/08/19 06:59 06:59 06:59 Intake Total 500 950 Output Total 2250 Balance 500 -1300 Weight 76.2 kg 72.4 kg General appearance: PRESENT: no acute distress, well-developed, well-nourished Head exam: PRESENT: atraumatic, normocephalic Respiratory exam: PRESENT: clear to auscultation julia. ABSENT: rales, rhonchi, wheezes Cardiovascular exam: PRESENT: RRR. ABSENT: diastolic murmur, rubs, systolic murmur Neurological exam: PRESENT: alert, awake, oriented to person, oriented to place, oriented to time, oriented to situation, other - Patient has what appears to be involuntary twitching and jerking about her upper and lower extremities, as well as her trunk. Patient states that she no longer feels lightheaded. Psychiatric exam: PRESENT: appropriate affect, normal mood. ABSENT: homicidal ideation, suicidal ideation Results Laboratory Results: 06/06/19 02:34 06/06/19 02:34 06/06/19 02:34 Iron 85.8 % Saturation 24 06/05/19 06/05/19 06/06/19 20:42 20:42 02:34 Creatine Kinase 81 CK-MB (CK-2) 3.02 Troponin I < 0.012 < 0.012 06/06/19 06/06/19 09:15 15:00 Creatine Kinase CK-MB (CK-2) Troponin I < 0.012 < 0.012 Impressions: Chest X-Ray 06/05/19 20:37 IMPRESSION: 1. No acute pulmonary findings. 2. Aortic atherosclerosis as on prior exam. Head CT 06/05/19 20:37 IMPRESSION: 1. No acute intracranial findings. Abdomen X-Ray 06/05/19 23:10 IMPRESSION: Early or partial small bowel obstruction versus small bowel ileus. copyright 2010 [employer]- All Rights Reserved Carotid Doppler Study 06/06/19 00:00 IMPRESSION: NO HEMODYNAMICALLY SIGNIFICANT STENOSIS. Head MRI 06/06/19 00:00 IMPRESSION: 1. No acute noncontrast MR intracranial pathology. 2. There is periventricular and pontine white matter T2/FLAIR hyperintensity with small nonacute bilateral cortical infarcts, for example in the right frontal and right parietal lobes (series 7, image 22). Findings are most likely sequelae of small prior infarctions and small vessel white matter disease, however pontine white matter abnormalities can be seen in the setting of acute sodium disturbances. Correlate with potential underlying medical factors if applicable. EVIDENCE OF ACUTE STROKE: NO. Assessment and Plan - Diagnosis (1) Akathisia Is this a current diagnosis for this admission?: Yes Plan: Versus restless leg, follow-up iron, trial Sinemet, consider neurology consult 06/07/2019 patient has seen multiple neurologist here in town and other locations as well. Patient is currently being seen by pain management. Patient feels like she may be back to her baseline her akathisia (2) HTN (hypertension) Is this a current diagnosis for this admission?: Yes Plan: BP this morning is on the low normal end. No medications on medlist. Will have home meds verified by pharmacy. 06/07/2019 patient was on 2 medications at home Prinivil and metoprolol those were not started here in the hospital. Patient's blood pressure this morning was 115/55 yesterday it was slightly elevated at 179/79. This time would not add those medications back to her hospital list (3) Hyponatremia Is this a current diagnosis for this admission?: Yes Plan: Improved. 06/07/2019 most recent sodium was 130 (4) Restless leg syndrome Is this a current diagnosis for this admission?: Yes Plan: She says she has been tried on different medications. She says that Valium has given her some relief but she is being weaned off on it by her PCP. Discussed the option of referral to neuro and pursuing a spinal stimulator later. She says that she has been seen by a neurologist a few years back and that his stimulator has also been brought up but she is apprehensive about pursuing this option. Will request records from PCP to see what she has been tried on. Will try how she responds to ropinirole. 06/07/2019 will probably not be able to improve on this condition. Has been started on ropinirole (5) Weakness Is this a current diagnosis for this admission?: Yes Plan: Restless leg versus CVA, follow-up MRI and physical therapy 06/07/2019 we will try to have physical therapy ambulate with patient today, patient does use a walker at home normally, prior to admission. - Time Time Spent with patient: 25-34 minutes
[2019-06-07] MEDS: TRAZODONE HCL 50 MG TABLET PO SCH (23:05)
[2019-06-07] MEDS: ROPINIROLE HCL 1 MG TABLET PO SCH (23:05)
[2019-06-08] MEDS ORDERED: NALBUPHINE HCL INJ 10 MG/1 ML AMPULE IV PRN (02:18)
[2019-06-08] MEDS ORDERED: FAMOTIDINE INJ/PF 20 MG/2 ML SDV IV ONE (02:30)
[2019-06-08] MEDS: HEPARIN SOD (PORCINE) 5,000 UNIT/ML 1 ML VIAL SUBCUT SCH (06:01)
[2019-06-08] MEDS: INSULIN LISPRO 100 UNIT/ML 3 ML VIAL SUBCUT SCH (06:01)
[2019-06-08 08:55] VITALS: BP 137/96
[2019-06-08] MEDS ORDERED: FAMOTIDINE INJ/PF 20 MG/2 ML SDV IV SCH (10:00)
--- NOTE | 2019-06-08 11:20 | PDOC DISCHARGE SUMMARY ---
General - Admit/Disc Date/PCP Admission Date/Primary Care Provider: 06/05/19 22:24 PARIS LAZO MD 06/08/2019 patient is being discharged to home today, only new medication is Requip 1 mg nightly. Patient will be maintained on her other meds. Discharge Date: 06/08/19 - Discharge Diagnosis (1) Akathisia Is this a current diagnosis for this admission?: Yes Summary: 06/08/2019 this is a long-term chronic condition, patient has been seen by multiple providers prior to admission. Patient will maintain same medications plus Requip 1 mg nightly number 30 tablets (2) HTN (hypertension) Is this a current diagnosis for this admission?: Yes Summary: 06/08/2019 patient was on lisinopril 20 mg daily she will continue metoprolol XL 25 mg daily no new antihypertensive meds were added (3) Hyponatremia Is this a current diagnosis for this admission?: Yes Summary: 06/08/2019 no medications or treatment for this of hyponatremia (4) Restless leg syndrome Is this a current diagnosis for this admission?: Yes Summary: 06/08/2019 patient will continue her Valium, gabapentin for her restless leg syndrome. (5) Weakness Is this a current diagnosis for this admission?: Yes Summary: 06/08/2019 patient is up and ambulatory with a rolling walker, patient is back to her baseline concerning strength - Additional Information Resuscitation Status: Full Code Discharge Diet: As Tolerated Discharge Activity: Activity As Tolerated, Walk Frequently Prescriptions: Ropinirole HCl [Requip] 1 mg PO QHS #30 tablet Home Medications: Cyanocobalamin (Vitamin B-12) [Vitamin B-12 1000 mcg Tablet] 1,000 mcg PO DAILY 06/06/19 Diazepam [Valium 5 mg Tablet] 5 mg PO BIDP PRN 06/06/19 Ergocalciferol (Vitamin D2) [Drisdol 50,000 unit (1.25MG) Capsule] 50,000 unit PO MO@1000 06/06/19 Fluticasone Propionate [Flonase Nasal [place] 50 Mcg/[place] 16 gm] 2 spray NASL Q12 06/06/19 Gabapentin [Neurontin 100 mg Capsule] 100 mg PO BID 06/06/19 Gabapentin [Neurontin 100 mg Capsule] 200 mg PO QHS 06/06/19 Lisinopril [Prinivil] 20 mg PO DAILY 06/06/19 Magnesium Oxide [Mag-Ox 400 mg Tablet] 400 mg PO BID 06/06/19 Methocarbamol [Robaxin 500 mg Tablet] 500 mg PO Q8HP PRN 06/06/19 Metoprolol Succinate [Toprol Xl 25 mg Tab.sr] 12.5 mg PO QHS 06/06/19 Oxybutynin Chloride [Oxybutynin Chloride ER] 10 mg PO DAILY 06/06/19 Paroxetine HCl [Paxil 20 mg Tablet] 20 mg PO QAM 06/06/19 Pramipexole Di-HCl [Mirapex 0.5 mg Tablet] 0.5 mg PO QHS 06/06/19 Ranitidine HCl [Zantac] 150 mg PO BIDP PRN 06/06/19 Rosuvastatin Calcium [Crestor 5 mg Tablet] 5 mg PO DAILY 06/06/19 Ropinirole HCl [Requip] 1 mg PO QHS #30 tablet 06/08/19 History of Present Illness History of Present Illness: KULDIP RANDOLPH is a 73 year old female 06/08/2019 patient was admitted to the hospital on 05 June for lightheadedness and weakness as well as hypertension. Patient's neurologic work-up revealed no CVA or intracranial lesion. Patient's blood pressure came under good control q uickly. Patient was started on Requip 1 mg nightly for possible early Parkinson's. Patient has done well with this medication and will be sent home with this prescription. Patient's other medicines will remain the same as preadmission. At the time of discharge I have seen patient up and ambulatory with a walker. Patient and her son-in-law have had a somewhat heated discussion about her living conditions. Patient states that she wants to go back home to [place] where her family and friends are. Patient does not appear to be in any danger in her current situation. Hospital Course Hospital Course: 06/08/2019 please see previous note dictated Physical Exam Vital Signs: Temp Pulse Resp BP Pulse Ox 97.7 F 84 18 137/96 H 100 06/08/19 07:43 06/08/19 07:43 06/08/19 07:43 06/08/19 07:43 06/08/19 07:43 Intake & Output 06/07/19 06/08/19 06/09/19 06:59 06:59 06:59 Intake Total 950 1536 Output Total 2250 1150 Balance -1300 386 Weight 72.4 kg 75 kg General appearance: PRESENT: no acute distress, well-developed, well-nourished Head exam: PRESENT: atraumatic, normocephalic Neck exam: ABSENT: carotid bruit, JVD, lymphadenopathy, thyromegaly Respiratory exam: PRESENT: clear to auscultation julia. ABSENT: rales, rhonchi, wheezes Cardiovascular exam: PRESENT: RRR. ABSENT: diastolic murmur, rubs, systolic murmur Neurological exam: PRESENT: alert, awake, oriented to person, oriented to place, oriented to time, oriented to situation, CN II-XII grossly intact, other - Patient has a somewhat spastic gait, as well as tonic clonic like activity of upper and lower extremities. According to the patient she has had this for years and has seen multiple neurologist. It may be somewhat worse now than it was previously. ABSENT: motor sensory deficit Psychiatric exam: PRESENT: appropriate affect, normal mood, other - Patient appears to me to be making rational decisions. She appears to be mentally competent normal affect. ABSENT: homicidal ideation, suicidal ideation Results Laboratory Results: 06/06/19 02:34 06/06/19 02:34 06/05/19 06/05/19 06/06/19 20:42 20:42 02:34 Creatine Kinase 81 CK-MB (CK-2) 3.02 Troponin I < 0.012 < 0.012 06/06/19 06/06/19 09:15 15:00 Creatine Kinase CK-MB (CK-2) Troponin I < 0.012 < 0.012 Impressions: Chest X-Ray 06/05/19 20:37 IMPRESSION: 1. No acute pulmonary findings. 2. Aortic atherosclerosis as on prior exam. Head CT 06/05/19 20:37 IMPRESSION: 1. No acute intracranial findings. Abdomen X-Ray 06/05/19 23:10 IMPRESSION: Early or partial small bowel obstruction versus small bowel ileus. copyright 2011 [facility] [facility]- All Rights Reserved Carotid Doppler Study 06/06/19 00:00 IMPRESSION: NO HEMODYNAMICALLY SIGNIFICANT STENOSIS. Head MRI 06/06/19 00:00 IMPRESSION: 1. No acute noncontrast MR intracranial pathology. 2. There is periventricular and pontine white matter T2/FLAIR hyperintensity with small nonacute bilateral cortical infarcts, for example in the right frontal and right parietal lobes (series 7, image 22). Findings are most likely sequelae of small prior infarctions and small vessel white matter disease, however pontine white matter abnormalities can be seen in the setting of acute sodium disturbances. Correlate with potential underlying medical factors if applicable. EVIDENCE OF ACUTE STROKE: NO. Qualifiers - * PATIENT BEING DISCHARGED WITH ANY OF THE FOLLOWING DIAGNOSIS: No VTE patient discharged on overlapping Therapy?: No Acute Heart Failure - Is this a Heart Failure Patient?: No Plan Discharge Plan: 06/08/2019 patient was seen by discharge planning, patient will be going back home with her daughter and son-in-law future plans will be made concerning possible going back to [facility] also plans might be made to have a marketing programs manager or living in to come with the patient, other than someone who is they are now from the [facility]. Only new medication is Requip 1 mg nightly I wrote for 30 tablets, resume previous meds. Time Spent: Greater than 30 Minutes - I spent a lot of time in the room with the patient and her son-in-law, discussing the plan.
== END 2019-06-08 14:10 | disposition home or self-care (01) | DRG 305 ==
LOC: ER 20:06 → EH 22:24 → 3N 06-06 02:15
PROVIDERS: ADMIT Internal Medicine; ATTEND Internal Medicine
DX: I16.1 Hypertensive emergency (principal); E87.1 Hypo-osmolality and hyponatremia; G20 Parkinson's disease; G25.71 Drug induced akathisia; E11.9 Type 2 diabetes mellitus without complications; D64.9 Anemia, unspecified; I10 Essential (primary) hypertension; E78.5 Hyperlipidemia, unspecified; F32.9 Major depressive disorder, single episode, unspecified; F41.9 Anxiety disorder, unspecified; G25.81 Restless legs syndrome; R42 Dizziness and giddiness; K44.9 Diaphragmatic hernia without obstruction or gangrene; M19.90 Unspecified osteoarthritis, unspecified site; R32 Unspecified urinary incontinence; E66.9 Obesity, unspecified; R53.1 Weakness; Z82.49 Family history of ischemic heart disease and other diseases of the circulatory system; Z79.84 Long term (current) use of oral hypoglycemic drugs; Z79.82 Long term (current) use of aspirin; Z88.6 Allergy status to analgesic agent; Z88.1 Allergy status to other antibiotic agents; Z88.3 Allergy status to other anti-infective agents; Z88.2 Allergy status to sulfonamides; Z88.8 Allergy status to other drugs, medicaments and biological substances
CPT/HCPCS: 36415; 70450; 70551; 71045; 74019; 80053; 80061; 80307; 81001; 82550; 82553; 82607; 82728; 82746; 82962; 83036; 83540; 83550; 84443; 84484; 85025; 85045; 85610; 85730; 93005; 93010; 93880; 94660; 99285; J1644; J2060; J2405; J3360; J3490; J7040; S0028

== ENCOUNTER → 2019-06-10 | Outpatient (CLI) | payer MEDICARE, OTHER ==
[2019-06-10 11:17] LABS: ABSOLUTE BASOPHILS # (AUTO) 0.1 10^3/uL (0.0-0.2); ABSOLUTE EOSINOPHILS # (AUTO) 0.1 10^3/uL (0.0-0.6); ABSOLUTE LYMPHOCYTES (AUTO) 1.8 10^3/uL (0.5-4.7); ABSOLUTE MONOCYTES (AUTO) 0.7 10^3/uL (0.1-1.4); ABSOLUTE NEUT (AUTO) 4.2 10^3/uL (1.7-8.2); BASOPHILS % (AUTO) 0.9 % (0-2); EOSINOPHILS % (AUTO) 1.1 % (0-6); HEMOGLOBIN 13.9 g/dL (12.0-15.5); LYMPHOCYTES % (AUTO) 26.5 % (13-45); MEAN CORPUSCULAR HEMOGLOBIN 29.3 pg (27.0-33.4); MEAN CORPUSCULAR VOLUME 89 fl (80-97); MONOCYTES % (AUTO) 10.7 % (3-13); PLATELET COUNT 353 10^3/uL (150-450); RED BLOOD COUNT 4.73 10^6/uL (3.72-5.28); RED CELL DISTRIBUTION WIDTH 14.9 % (11.5-14.0); SEGMENTED NEUTROPHILS % (AUTO) 60.8 % (42-78); TOTAL CELLS COUNTED % (AUTO) 100 %; WHITE BLOOD COUNT 6.9 10^3/uL (4.0-10.5)
[2019-06-10 11:31] LABS: ANION GAP 13 (5-19); BLOOD UREA NITROGEN 13 mg/dL (7-20); CALCIUM 10.5 mg/dL (8.4-10.2); CARBON DIOXIDE 24 mmol/L (22-30); CHLORIDE 96 mmol/L (98-107); CHOLESTEROL 137.18 mg/dL (0-200); GLUCOSE 145 mg/dL (75-110); TRIGLYCERIDES 84 mg/dL (<150)
[2019-06-10 11:42] LABS: DIRECT LDL 57 mg/dL (<100)
[2019-06-11 14:37] LABS: CREATININE URINE 106.4 mg/dL (Not Estab.); MICROALBUMIN URINE 38.7 ug/mL (Not Estab.)
== END ==
LOC: OD 09:55
PROVIDERS: ATTEND Family Medicine Geriatric Medicine
DX: N18.3 Chronic kidney disease, stage 3 (moderate) (principal); E83.52 Hypercalcemia; E11.40 Type 2 diabetes mellitus with diabetic neuropathy, unspecified; Z79.899 Other long term (current) drug therapy; I12.9 Hypertensive chronic kidney disease with stage 1 through stage 4 chronic kidney disease, or unspecified chronic kidney disease; E78.5 Hyperlipidemia, unspecified
CPT/HCPCS: 36415; 80048; 80061; 82043; 82570; 83970; 84460; 85025

== ENCOUNTER → 2019-07-11 | Outpatient (CLI) | payer MEDICARE, OTHER ==
--- NOTE | 2019-07-11 15:53 | RADIOLOGY REPORT (SQ) ---
EXAM DESCRIPTION: L SPINE WHOLE COMPLETED DATE/TIME: 07/11/2019 3:43 pm REASON FOR STUDY: LOW BACK PAIN M25.552 PAIN IN LEFT HIP M54.5 LOW BACK PAIN COMPARISON: None. NUMBER OF VIEWS: Five views including obliques. TECHNIQUE: AP, lateral, oblique, and sacral radiographic images acquired of the lumbar spine. LIMITATIONS: None. FINDINGS: MINERALIZATION: Normal. SEGMENTATION: Normal. No transitional anatomy. ALIGNMENT: There is grade 1-2 anterolisthesis of L2 on L3. VERTEBRAE: Maintained height. No fracture or worrisome bone lesion. DISCS: Multilevel disc space narrowing with osteophytes. POSTERIOR ELEMENTS: Prior multilevel posterior decompression. HARDWARE: None in the spine. PARASPINAL SOFT TISSUES: Normal. PELVIS: Intact as visualized. No fractures or worrisome bone lesions. SI joints intact. OTHER: No other significant finding. IMPRESSION: Postsurgical and degenerative changes. No acute findings. TECHNICAL DOCUMENTATION: JOB ID: [id number] [employer]- All Rights Reserved Reading location - IP/workstation name: [email or web address]
--- NOTE | 2019-07-11 15:54 | RADIOLOGY REPORT (SQ) ---
EXAM DESCRIPTION: SACRUM AND COCCYX COMPLETED DATE/TIME: 07/11/2019 3:43 pm REASON FOR STUDY: LOW BACK PAIN M25.552 PAIN IN LEFT HIP M54.5 LOW BACK PAIN COMPARISON: 10/22/2016 NUMBER OF VIEWS: Three views. TECHNIQUE: AP, lateral, and tilt views of the sacrum and coccyx. LIMITATIONS: None. FINDINGS: MINERALIZATION: Normal. BONES: No acute fracture or dislocation. No worrisome bone lesions. SOFT TISSUES: No soft tissue swelling. No foreign body. OTHER: No other significant finding. IMPRESSION: NEGATIVE STUDY OF THE SACRUM AND COCCYX. TECHNICAL DOCUMENTATION: JOB ID: [id number] [employer]- All Rights Reserved Reading location - IP/workstation name: [email or web address]
--- NOTE | 2019-07-11 15:55 | RADIOLOGY REPORT (SQ) ---
EXAM DESCRIPTION: HIP LEFT AP/LATERAL COMPLETED DATE/TIME: 07/11/2019 3:43 pm REASON FOR STUDY: PAIN IN LEFT HIP M25.552 PAIN IN LEFT HIP M54.5 LOW BACK PAIN COMPARISON: None. NUMBER OF VIEWS: Two views. TECHNIQUE: AP pelvis and additional frog-leg view of the left hip. LIMITATIONS: None. FINDINGS: MINERALIZATION: Normal. LEFT HIP: No fracture or dislocation. There is slight medial narrowing of the joint space. Small ma rginal osteophyte is seen on the femoral head. RIGHT HIP: No fracture. Degenerative joint space narrowing. PUBIS AND ISCHIUM: No fracture. PELVIS: No fracture. SACRUM: No fracture or dislocation. No worrisome bone lesions. LOWER LUMBAR SPINE: Lower lumbar degenerative joint disease and spondylosis. SOFT TISSUES: No findings. OTHER: No other significant finding. IMPRESSION: Mild degenerative joint disease in each hip. Lumbar degenerative changes. TECHNICAL DOCUMENTATION: JOB ID: [id number] [employer]- All Rights Reserved Reading location - IP/workstation name: [email or web address]
== END ==
LOC: RAD 15:02
PROVIDERS: ATTEND Family Medicine Geriatric Medicine
DX: M16.0 Bilateral primary osteoarthritis of hip (principal); M25.552 Pain in left hip; M47.896 Other spondylosis, lumbar region; M54.5 Low back pain; W19.XXXA Unspecified fall, initial encounter
CPT/HCPCS: 72110; 72220

== ENCOUNTER → 2019-09-15 | Outpatient (CLI) | payer MEDICARE, OTHER ==
[2019-09-15 13:23] LABS: ABSOLUTE LYMPHOCYTES (AUTO) 1.7 10^3/uL (0.5-4.7); ABSOLUTE MONOCYTES (AUTO) 0.4 10^3/uL (0.1-1.4); ABSOLUTE NEUT (AUTO) 2.8 10^3/uL (1.7-8.2); BASOPHILS % (AUTO) 0.8 % (0-2); HEMATOCRIT 37.7 % (36.0-47.0); HEMOGLOBIN 12.9 g/dL (12.0-15.5); LYMPHOCYTES % (AUTO) 33.6 % (13-45); MEAN CORPUSCULAR HEMOGLOBIN 30.1 pg (27.0-33.4); MEAN CORPUSCULAR HGB CONC 34.3 g/dL (32.0-36.0); MEAN CORPUSCULAR VOLUME 88 fl (80-97); MONOCYTES % (AUTO) 8.7 % (3-13); PLATELET COUNT 401 10^3/uL (150-450); RED BLOOD COUNT 4.29 10^6/uL (3.72-5.28); RED CELL DISTRIBUTION WIDTH 14.6 % (11.5-14.0); SEGMENTED NEUTROPHILS % (AUTO) 55.9 % (42-78); TOTAL CELLS COUNTED % (AUTO) 100 %
[2019-09-15 13:46] LABS: ANION GAP 9 (5-19); BLOOD UREA NITROGEN 17 mg/dL (7-20); CALCIUM 10.5 mg/dL (8.4-10.2); CARBON DIOXIDE 29 mmol/L (22-30); CHLORIDE 99 mmol/L (98-107); GLUCOSE 108 mg/dL (75-110); POTASSIUM 4.7 mmol/L (3.6-5.0)
== END ==
LOC: OD 12:19
PROVIDERS: ATTEND Internal Medicine Nephrology
DX: R80.9 Proteinuria, unspecified (principal); E87.1 Hypo-osmolality and hyponatremia; E11.9 Type 2 diabetes mellitus without complications; I10 Essential (primary) hypertension
CPT/HCPCS: 36415; 80048; 83735; 85025

== ENCOUNTER → 2019-09-24 | Outpatient (CLI) | payer MEDICARE, OTHER ==
[2019-09-24 10:46] LABS: ABSOLUTE BASOPHILS # (AUTO) 0.1 10^3/uL (0.0-0.2); ABSOLUTE EOSINOPHILS # (AUTO) 0.1 10^3/uL (0.0-0.6); ABSOLUTE MONOCYTES (AUTO) 0.4 10^3/uL (0.1-1.4); ABSOLUTE NEUT (AUTO) 2.2 10^3/uL (1.7-8.2); BASOPHILS % (AUTO) 1.1 % (0-2); EOSINOPHILS % (AUTO) 2.3 % (0-6); HEMATOCRIT 39.1 % (36.0-47.0); HEMOGLOBIN 13.1 g/dL (12.0-15.5); LYMPHOCYTES % (AUTO) 41.6 % (13-45); MEAN CORPUSCULAR HEMOGLOBIN 29.7 pg (27.0-33.4); MEAN CORPUSCULAR HGB CONC 33.4 g/dL (32.0-36.0); MEAN CORPUSCULAR VOLUME 89 fl (80-97); PLATELET COUNT 354 10^3/uL (150-450); RED BLOOD COUNT 4.39 10^6/uL (3.72-5.28); RED CELL DISTRIBUTION WIDTH 14.9 % (11.5-14.0); TOTAL CELLS COUNTED % (AUTO) 100 %; WHITE BLOOD COUNT 4.9 10^3/uL (4.0-10.5)
[2019-09-24 11:17] LABS: ANION GAP 11 (5-19); BLOOD UREA NITROGEN 16 mg/dL (7-20); CALCIUM 10.2 mg/dL (8.4-10.2); CARBON DIOXIDE 29 mmol/L (22-30); CHLORIDE 101 mmol/L (98-107); CHOLESTEROL 126.88 mg/dL (0-200); GLUCOSE 132 mg/dL (75-110); POTASSIUM 4.5 mmol/L (3.6-5.0); TRIGLYCERIDES 95 mg/dL (<150)
[2019-09-24 11:28] LABS: DIRECT LDL 59 mg/dL (<100)
[2019-09-26 04:36] LABS: CREATININE URINE 70.7 mg/dL (Not Estab.); MICROALBUMIN URINE 26.5 ug/mL (Not Estab.)
== END ==
LOC: OD 09:28
PROVIDERS: ATTEND Family Medicine Geriatric Medicine
DX: E11.21 Type 2 diabetes mellitus with diabetic nephropathy (principal); I10 Essential (primary) hypertension; E78.5 Hyperlipidemia, unspecified; Z79.899 Other long term (current) drug therapy
CPT/HCPCS: 36415; 80048; 80061; 82043; 82570; 83036; 84460; 85025

== ENCOUNTER → 2019-10-31 | Outpatient (CLI) | payer MEDICARE, OTHER ==
--- NOTE | 2019-10-31 14:20 | WOMENS IMAGING REPORT ---
EXAM DESCRIPTION: BILAT SCREENING MAMMO W/CAD COMPLETED DATE/TIME: 10/31/2019 9:28 am REASON FOR STUDY: Z12.31 SCREENING MAMMO Z12.31 ENCNTR SCREEN MAMMOGRAM FOR MALIGNANT NEOPLASM OF B RE COMPARISON: 10/18/2018 and 10/02/2016. EXAM PARAMETERS: Standard craniocaudal and mediolateral oblique views of each breast recorded using digital acquisition. Read with the assistance of CAD. .[facility] - [employer] Sales Utility Representative Version 9.2 LIMITATIONS: None. FINDINGS: No suspicious masses, suspicious calcifications or architectural distortion. No areas of c oncern. IMPRESSION: Negative MAMMOGRAM. BIRADS 1 BREAST DENSITY: b. There are scattered areas of fibroglandular density. BIRAD: ASSESSMENT: 1 NEGATIVE RECOMMENDATION: ROUTINE SCREENING COMMENT: The patient has been notified of the results by letter per MQSA requirements. Additional no tification policies are in place for contacting patient with suspicious or incomplete findings. Quality ID #[id number]: The [employer] recommends an annual screening mammogram for women aged 40 years or over. This facility utilizes a reminder system to ensure that all patients receive reminder letters, and/or direct phone calls for appointments. This includes reminders for routine scr eening mammograms, diagnostic mammograms, or other Breast Imaging Interventions when appropriate. Th is patient will be placed in the appropriate reminder system. TECHNICAL DOCUMENTATION: FINDING NUMBER: (1) ASSESSMENT: (1) JOB ID: [id number] [employer]- All Rights Reserved Reading location - IP/workstation name: [email or web address]
== END ==
LOC: WI 08:50
PROVIDERS: ATTEND Family Medicine Geriatric Medicine
DX: Z12.31 Encounter for screening mammogram for malignant neoplasm of breast (principal)
CPT/HCPCS: 77067

== ENCOUNTER → 2019-12-15 | Outpatient (CLI) | payer MEDICARE, OTHER ==
[2019-12-15 11:02] LABS: ANION GAP 9 (5-19); BLOOD UREA NITROGEN 14 mg/dL (7-20); CALCIUM 9.9 mg/dL (8.4-10.2); CARBON DIOXIDE 29 mmol/L (22-30); CHLORIDE 98 mmol/L (98-107); GLUCOSE 115 mg/dL (75-110); POTASSIUM 4.6 mmol/L (3.6-5.0)
[2019-12-16 11:37] LABS: CREATININE URINE 74.6 mg/dL (Not Estab.)
== END ==
LOC: OD 09:23
PROVIDERS: ATTEND Family Medicine Geriatric Medicine
DX: E11.21 Type 2 diabetes mellitus with diabetic nephropathy (principal); G25.81 Restless legs syndrome; I10 Essential (primary) hypertension; Z79.899 Other long term (current) drug therapy
CPT/HCPCS: 80048; 82043; 82570; 83036

== ENCOUNTER → 2020-04-18 | Outpatient (CLI) | payer MEDICARE, OTHER ==
[2020-04-18 09:33] LABS: ABSOLUTE EOSINOPHILS # (AUTO) 0.2 10^3/uL (0.0-0.6); ABSOLUTE LYMPHOCYTES (AUTO) 2.7 10^3/uL (0.5-4.7); ABSOLUTE MONOCYTES (AUTO) 0.5 10^3/uL (0.1-1.4); ABSOLUTE NEUT (AUTO) 1.9 10^3/uL (1.7-8.2); BASOPHILS % (AUTO) 0.9 % (0-2); EOSINOPHILS % (AUTO) 2.8 % (0-6); HEMATOCRIT 37.4 % (36.0-47.0); HEMOGLOBIN 12.6 g/dL (12.0-15.5); LYMPHOCYTES % (AUTO) 50.3 % (13-45); MEAN CORPUSCULAR HEMOGLOBIN 30.6 pg (27.0-33.4); MEAN CORPUSCULAR HGB CONC 33.8 g/dL (32.0-36.0); MEAN CORPUSCULAR VOLUME 91 fl (80-97); MONOCYTES % (AUTO) 10.2 % (3-13); PLATELET COUNT 310 10^3/uL (150-450); RED BLOOD COUNT 4.13 10^6/uL (3.72-5.28); RED CELL DISTRIBUTION WIDTH 14.9 % (11.5-14.0); SEGMENTED NEUTROPHILS % (AUTO) 35.8 % (42-78); TOTAL CELLS COUNTED % (AUTO) 100 %; WHITE BLOOD COUNT 5.4 10^3/uL (4.0-10.5)
[2020-04-18 09:58] LABS: ANION GAP 6 (5-19); BLOOD UREA NITROGEN 16 mg/dL (7-20); CALCIUM 9.7 mg/dL (8.4-10.2); CARBON DIOXIDE 28 mmol/L (22-30); CHLORIDE 101 mmol/L (98-107); CHOLESTEROL 141.77 mg/dL (0-200); GLUCOSE 111 mg/dL (75-110); POTASSIUM 4.8 mmol/L (3.6-5.0); TRIGLYCERIDES 96 mg/dL (<150)
[2020-04-18 10:11] LABS: DIRECT LDL 59 mg/dL (<100)
[2020-04-19 10:36] LABS: MICROALBUMIN URINE 4.7 ug/mL (Not Estab.)
== END ==
LOC: OD 08:24
PROVIDERS: ATTEND Family Medicine Geriatric Medicine
DX: E11.21 Type 2 diabetes mellitus with diabetic nephropathy (principal); I10 Essential (primary) hypertension; E78.5 Hyperlipidemia, unspecified; Z79.899 Other long term (current) drug therapy
CPT/HCPCS: 36415; 80048; 80061; 82043; 82570; 83036; 84460; 85025

== ENCOUNTER → 2020-05-10 | Outpatient (CLI) | payer MEDICARE, OTHER | LOC: OD 13:47 | PROVIDERS: ATTEND Psychiatry & Neurology Neurology | DX: E61.1 Iron deficiency (principal) | CPT/HCPCS: 36415; 82728; 83540; 83550 ==

== ENCOUNTER → 2020-06-20 | Outpatient (CLI) | payer MEDICARE, OTHER ==
[2020-06-20 09:21] LABS: ABSOLUTE BASOPHILS # (AUTO) 0.1 10^3/uL (0.0-0.2); ABSOLUTE EOSINOPHILS # (AUTO) 0.2 10^3/uL (0.0-0.6); ABSOLUTE LYMPHOCYTES (AUTO) 2.3 10^3/uL (0.5-4.7); ABSOLUTE MONOCYTES (AUTO) 0.6 10^3/uL (0.1-1.4); ABSOLUTE NEUT (AUTO) 2.9 10^3/uL (1.7-8.2); EOSINOPHILS % (AUTO) 2.6 % (0-6); HEMATOCRIT 38.3 % (36.0-47.0); HEMOGLOBIN 12.6 g/dL (12.0-15.5); LYMPHOCYTES % (AUTO) 38.1 % (13-45); MEAN CORPUSCULAR HEMOGLOBIN 30.4 pg (27.0-33.4); MEAN CORPUSCULAR HGB CONC 32.9 g/dL (32.0-36.0); MEAN CORPUSCULAR VOLUME 92 fl (80-97); MONOCYTES % (AUTO) 10.2 % (3-13); RED BLOOD COUNT 4.15 10^6/uL (3.72-5.28); RED CELL DISTRIBUTION WIDTH 14.5 % (11.5-14.0); SEGMENTED NEUTROPHILS % (AUTO) 48.1 % (42-78); TOTAL CELLS COUNTED % (AUTO) 100 %
[2020-06-20 09:42] LABS: ANION GAP 9 (5-19); BLOOD UREA NITROGEN 18 mg/dL (7-20); CALCIUM 10.2 mg/dL (8.4-10.2); CARBON DIOXIDE 29 mmol/L (22-30); CHLORIDE 100 mmol/L (98-107); GLUCOSE 130 mg/dL (75-110)
[2020-06-20 09:51] LABS: PLATELET COUNT 295 10^3/uL (150-450)
== END ==
LOC: OD 08:20
PROVIDERS: ATTEND Family Medicine Geriatric Medicine
DX: E87.1 Hypo-osmolality and hyponatremia (principal); R79.89 Other specified abnormal findings of blood chemistry; Z79.899 Other long term (current) drug therapy
CPT/HCPCS: 36415; 80048; 85025

== ENCOUNTER → 2020-08-24 | Outpatient (CLI) | payer MEDICARE, OTHER ==
[2020-08-24 10:25] LABS: CHOLESTEROL 136.22 mg/dL (0-200); TRIGLYCERIDES 90 mg/dL (<150)
[2020-08-24 10:35] LABS: DIRECT LDL 48 mg/dL (<100)
== END ==
LOC: OD 08:59
PROVIDERS: ATTEND Family Medicine Geriatric Medicine
DX: E78.5 Hyperlipidemia, unspecified (principal); Z79.899 Other long term (current) drug therapy
CPT/HCPCS: 36415; 80061; 84460

== ENCOUNTER → 2020-11-08 | Outpatient (CLI) | payer MEDICARE, OTHER ==
[2020-11-08 13:00] LABS: ABSOLUTE EOSINOPHILS # (AUTO) 0.1 10^3/uL (0.0-0.6); ABSOLUTE LYMPHOCYTES (AUTO) 1.9 10^3/uL (0.5-4.7); ABSOLUTE MONOCYTES (AUTO) 0.5 10^3/uL (0.1-1.4); ABSOLUTE NEUT (AUTO) 2.7 10^3/uL (1.7-8.2); BASOPHILS % (AUTO) 0.7 % (0-2); HEMATOCRIT 36.5 % (36.0-47.0); HEMOGLOBIN 12.3 g/dL (12.0-15.5); LYMPHOCYTES % (AUTO) 35.9 % (13-45); MEAN CORPUSCULAR HEMOGLOBIN 30.5 pg (27.0-33.4); MEAN CORPUSCULAR HGB CONC 33.7 g/dL (32.0-36.0); MEAN CORPUSCULAR VOLUME 90 fl (80-97); MONOCYTES % (AUTO) 9.8 % (3-13); PLATELET COUNT 313 10^3/uL (150-450); RED BLOOD COUNT 4.03 10^6/uL (3.72-5.28); RED CELL DISTRIBUTION WIDTH 14.5 % (11.5-14.0); SEGMENTED NEUTROPHILS % (AUTO) 51.6 % (42-78); TOTAL CELLS COUNTED % (AUTO) 100 %; WHITE BLOOD COUNT 5.2 10^3/uL (4.0-10.5)
[2020-11-08 14:23] LABS: ANION GAP 8 (5-19); BLOOD UREA NITROGEN 19 mg/dL (7-20); CALCIUM 10.1 mg/dL (8.4-10.2); CARBON DIOXIDE 28 mmol/L (22-30); CHLORIDE 100 mmol/L (98-107); GLUCOSE 104 mg/dL (75-110); IRON(TIBC) 101.4 ug/dL (37-170)
== END ==
LOC: OD 12:10
PROVIDERS: ATTEND Family Medicine Geriatric Medicine
DX: D64.9 Anemia, unspecified (principal); G25.81 Restless legs syndrome; I10 Essential (primary) hypertension; Z79.899 Other long term (current) drug therapy
CPT/HCPCS: 36415; 80048; 82728; 83540; 83550; 85025

== ENCOUNTER → 2020-11-12 | Outpatient (CLI) | payer MEDICARE, OTHER ==
--- NOTE | 2020-11-12 10:39 | WOMENS IMAGING REPORT ---
EXAM DESCRIPTION: BILAT SCREENING MAMMO W/CAD IMAGES COMPLETED DATE/TIME: 11/12/2020 10:08 am REASON FOR STUDY: ROUTINE BILATERAL SCREENING;Z12.31 Z12.31 ENCNTR SCREEN MAMMOGRAM FOR MALIGNANT N EOPLASM OF CHAVEZ COMPARISON: Digital bilateral screening mammograms dated 10/31/2019, 10/18/2018 and 10/02/2016. EXAM PARAMETERS: Standard craniocaudal and mediolateral oblique views of each breast recorded using digital acquisition. Read with the assistance of CAD. .[facility] - [employer] Clinical Nurse Educator Version 9.2 LIMITATIONS: None. FINDINGS: Findings present which are benign by mammographic criteria. No suspicious masses, calcifi cations or architectural distortion. Pertinent benign findings: Stable calcifications vascular calcifications in the breast. Benign mammographic findings may include one or more of the following: Smooth masses, popcorn/rim/co arse calcifications, asymmetries, post-procedure changes, and lesions with long-standing stability. IMPRESSION: BENIGN MAMMOGRAPHIC FINDINGS. BIRADS 2 BREAST DENSITY: b. There are scattered areas of fibroglandular density. BIRAD: ASSESSMENT: 2 BENIGN FINDING(S) RECOMMENDATION: 1. ROUTINE SCREENING COMMENT: The patient has been notified of the results by letter per MQSA requirements. Additional no tification policies are in place for contacting patient with suspicious or incomplete findings. Quality ID #[id number]: The [employer] recommends an annual screening mammogram for women aged 40 years or over. This facility utilizes a reminder system to ensure that all patients receive reminder letters, and/or direct phone calls for appointments. This includes reminders for routine scr eening mammograms, diagnostic mammograms, or other Breast Imaging Interventions when appropriate. Th is patient will be placed in the appropriate reminder system. TECHNICAL DOCUMENTATION: FINDING NUMBER: (1) ASSESSMENT: (1) JOB ID: [id number] 2010 [employer] All Rights Reserved Reading location - IP/workstation name: [id number]
== END ==
LOC: WI 09:52
PROVIDERS: ATTEND Family Medicine Geriatric Medicine
DX: Z12.31 Encounter for screening mammogram for malignant neoplasm of breast (principal)
CPT/HCPCS: 77067